=== PATIENT | male | born 1960 | race Caucasian/White ===

== ENCOUNTER 2022-12-03 19:08 | Emergency (ER) | payer MEDICARE, SELFPAY ==
[2022-12-03 19:12] VITALS: BP 108/78; PULSE 65; RESP 18; TEMP 36.5; O2SAT 99; BMI 35.4
--- NOTE | 2022-12-03 19:18 | ED.GENADULT ---
HPI - General Adult General Chief complaint: Dental/Oral Stated complaint: Dental pain Time Seen by Provider: 12/03/22 19:17 Source: patient Mode of arrival: ambulatory Limitations: no limitations History of Present Illness HPI narrative: 62 yold male presents to the ED for left lower molar pain and right upper molar pain. Patient states poor dental hygeine and decaying teeth. Patient denies any recent trauma or recent dental work. Related Data Previous Rx's Medication Instructions Recorded clindamycin HCl 300 mg capsule 300 mg PO TID 10 days #30 caps 12/03/22 oxycodone 5 mg capsule 5 mg PO Q8H PRN pain 3 days #9 caps 12/03/22 Allergies Allergy/AdvReac Type Severity Reaction Status Date / Time ketorolac [From Toradol] Allergy Rash Verified 12/03/22 19:11 Penicillins Allergy Hives Verified 12/03/22 19:11 Review of Systems Review of Systems: toothache Yes all other systems are reviewed and are negative [facility] Social History Social History Advance Directives: No Physical Exam ED Vital Signs: Vital Signs - 24 hr 12/03/22 19:12 Temperature 97.7 F Pulse Rate 65 Respiratory Rate 18 Blood Pressure 108/78 Pulse Oximetry 99 Oxygen Delivery Method Room Air BMI result Body Mass Index 35.4 Const General: cooperative, healthy appearing, comfortable and no acute distress Orientation/consciousness: oriented to person, oriented to place, oriented to time and patient oriented x3 HENMT Other: negative for any facial swelling, neck swelling, drooling, trismus Head: Yes normal to inspection, Yes No palpable skull fracture present and Yes normocephalic Teeth image: 1. cracked tooth with some pus collection. no gum swelling, fluctulance, or trismus. 2. decaying teeth. negative trismus or gum swelling. negative fluctulance Eyes General: appearance normal, both eyes and all related structures Neck Neck: Yes normal visual inspection, Yes full ROM, Yes no lymphadenopathy, Yes no meningeal signs, Yes trachea midline, Yes supple, No anterior neck swelling and No tender Chest Chest palpation & inspection: normal inspection of the chest and normal palpation of entire chest wall Resp Effort & Inspection: normal respiratory effort and able to speak in complete sentences Auscultation: clear to auscultation bilaterally Cardio Jugular venous distension: no JVD Heart sounds: S1 normal heart sound present and S2 normal heart sound present GI Inspection: Yes normal to inspection and No abdominal wall ecchymosis Palpation (GI): Soft to palpation, not firm, nontender, no guarding and not rigid General: No CVA tenderness and Yes no CVA tenderness Back/Spine/Pelvis Back: no CVA tenderness, No CVA tenderness and No back tenderness Skin General skin exam: no rashes or lesions noted and elasticity normal Neuro General: oriented to person, oriented to place, oriented to time, patient oriented x3, gait normal, tone normal, moves all extremities, Normal light touch and pain sensation, no meningeal signs and no focal motor deficits Extrem General: Yes normal to inspection and Yes full ROM Psych Appearance: grossly normal, well kempt and not disheveled Course Course Course Narrative: RME: 62 yolld male presents to the for left lower molar pain and right upper molar pain. LEft lower molar cracked and yellow collection Medical Decision Making Medical Decision Making MDM Narrative: 62 yold male presents to the ED for left lower molar cracked tooth and right upper molar decaying tooth. Negative for any neck swelling or facial swelling. negative for drooling or trismus. Will be discharged with antibiotics and pain meds. Negative for signs of peritonsillar abscess, jayme angina, retropharygneal abscess, or gum abscess Differential Diagnosis Differential Diagnoses: The differential diagnosis associated with the presentation includes (tootach, dental abscess, jayme angina, retropharyngeal abscess, gum abscess) External Record Review External record reviewed: Other (prior ED visit) Prescription Management I considered prescription management with: Pain Medication and Antibiotic Discharge Plan Discharge Clinical Impression: Toothache Patient Disposition: Home, Self-Care Instructions: Toothache (ED) Additional Instructions: Return to the ED immediately any facial swelling, neck swelling, drooling, shortness of breath, change in voice, inability to tolerate solid food/liquid, or any other concerning symptoms. Please follow-up with your dentist. Prescriptions: New clindamycin HCl 300 mg capsule 300 mg PO TID 10 Days Qty: 30 0RF oxycodone 5 mg capsule 5 mg PO Q8H PRN (Reason: pain) 3 Days Qty: 9 0RF Rx Instructions: Partial Fill upon patient request. Interventions: ED Discharge Assessment Last Done: 12/03/22 19:33 Discharge Date/Time: 12/03/22 19:33 Print Language: Sudanese
== END 2022-12-03 19:33 | disposition home or self-care (01) ==
PROVIDERS: Emergency Provider Emergency Medicine
DX: K02.9 Dental caries, unspecified (principal); K08.89 Other specified disorders of teeth and supporting structures
CPT/HCPCS: 99282; 99283

== ENCOUNTER 2022-12-06 13:32 | Emergency (ER) | payer MEDICARE, SELFPAY ==
[2022-12-06 13:55] VITALS: BP 153/84; PULSE 74; RESP 17; TEMP 36.7; O2SAT 99; BMI 33.1
--- NOTE | 2022-12-06 13:55 | ED_ITS ---
HPI - Dental/Oral General Chief complaint: Dental/Oral Stated complaint: pain in teeth Time Seen by Provider: 12/06/22 14:02 Source: patient and old records reviewed Mode of arrival: ambulatory Limitations: no limitations History of Present Illness HPI Narrative: 62 yo male presents to the ER for evaluation of worsening left lower dental pain. He has a cracked tooth with pus draining from the central portion of it. He was seen here 2 days ago and was discharged with clindamycin and oxycodone. He denies any fever, chills, trismus or facial swelling. He is here visiting from [place] and has an oral surgeon who he can see as soon as he gets back. MD Complaint: tooth pain Location: Tooth # (20) Onset (ago): day(s) Duration: constant Severity: severe Severity scale (1-10): 10 Relieving factors: prescription analgesics Context: history of dental caries, trauma (mechanism) and poor dental care Associated symptoms: gum swelling Treatment prior to arrival: topical analgesic and oral analgesic Related Data Previous Rx's Medication Instructions Recorded clindamycin HCl 300 mg capsule 300 mg PO TID 10 days #30 caps 12/03/22 oxycodone 5 mg capsule 5 mg PO Q8H PRN pain 3 days #9 caps 12/03/22 ondansetron 4 mg disintegrating 4 mg PO Q8H PRN nausea and 12/06/22 tablet vomiting 3 days #10 tabs oxycodone-acetaminophen 5 mg-325 1 tab PO Q6H PRN severe pain 12/06/22 mg tablet (Percocet) (scale score 7-10) #12 tabs Allergies Allergy/AdvReac Type Severity Reaction Status Date / Time ketorolac [From Toradol] Allergy Rash Verified 12/03/22 19:11 Penicillins Allergy Hives Verified 12/03/22 19:11 Review of Systems Review of Systems: Yes all other systems are reviewed and are negative PMF[facility] Social History Social History Advance Directives: No Advance Directives Information Provided: Yes Physical Exam Vital Signs: Vital Signs: Last Vital Signs Temp 98.0 F 12/06/22 13:55 Pulse 74 12/06/22 13:55 Resp 17 12/06/22 13:55 BP 153/84 H 12/06/22 13:55 Pulse Ox 99 12/06/22 13:55 O2 Del Method Room Air 12/06/22 13:55 BMI result Body Mass Index 33.1 Appearance: Alert. Oriented X3. No acute distress. HEENT: normal external inspection. no facial swelling. poor dentition. left lower molar cracked w dental exposed pulp and purulent material. +gingival tenderness without fluctuance. no trismus CVS: Normal heart rate and rhythm. Pulses normal. Respiratory: No respiratory distress. Skin: Skin warm and dry. Normal skin color. Normal skin turgor. No rashes. Extremities: normal inspection x4 Neuro: Oriented X 3. nonfocal Medical Decision Making Medical Decision Making MDM Narrative: 62 yo male presenting with ongoing left lower dental pain x1 week. on clinda already, PCN allergic. abscess on exam, draining without trismus. no facial swelling. he has an oral surgeon to see when he gets home to [place] he just ne eds more pain meds to get him through the drive home. stable for d/c home with pain control and oral surgery follow up Differential Diagnosis Differential Diagnoses: The differential diagnosis associated with the presentation includes dental abscess, toothache, dental trauma, no evidence of ludwigs angina Independent Historian Clinical information obtained from an independent historian. History obtained from or confirmed by: Spouse External Record Review External record reviewed: Outpatient record Tests considered The following testing was considered but not selected: considered CT facial bones Prescription Management I considered prescription management with: Pain Medication and Antibiotic Critical Care Time Critical Care Time Critical Care Time: No Discharge Plan Discharge Clinical Impression: Abscess, dental Patient Disposition: Home, Self-Care Instructions: Dental Abscess (ED) Additional Instructions: continue the previously prescribed antibiotics take the prescribed pain medication as needed for severe pain follow up with your oral surgeon as soon as possible Prescriptions: New oxycodone-acetaminophen [Percocet] 5-325 mg tablet 1 tab PO Q6H PRN (Reason: severe pain (scale score 7-10)) Qty: 12 0RF Rx Instructions: Partial Fill upon patient request. ondansetron 4 mg tablet,disintegrating 4 mg PO Q8H PRN (Reason: nausea and vomiting) 3 Days Qty: 10 0RF No Action clindamycin HCl 300 mg capsule 300 mg PO TID 10 Days Qty: 30 0RF oxycodone 5 mg capsule 5 mg PO Q8H PRN (Reason: pain) 3 Days Qty: 9 0RF Rx Instructions: Partial Fill upon patient request. Interventions: ED Discharge Assessment Last Done: 12/06/22 14:11 Discharge Date/Time: 12/06/22 14:12
== END 2022-12-06 14:12 | disposition home or self-care (01) ==
PROVIDERS: Emergency Provider Emergency Medicine Emergency Medical Services
DX: K04.7 Periapical abscess without sinus (principal); Z79.899 Other long term (current) drug therapy
CPT/HCPCS: 99282; 99283

== ENCOUNTER 2022-12-10 12:37 | Emergency (ER) | payer MEDICARE, SELFPAY ==
[2022-12-10 12:39] VITALS: BP 156/93; PULSE 69; RESP 20; TEMP 37.2; O2SAT 99; BMI 32.6
--- NOTE | 2022-12-10 12:43 | ED.GENADULT ---
HPI - General Adult General Chief complaint: General Medical Stated complaint: med refill? tooth pain Time Seen by Provider: 12/10/22 12:43 Source: patient Mode of arrival: ambulatory Limitations: no limitations History of Present Illness HPI narrative: Patient is a 62-year-old male presenting to the emergency department with complaint of dental pain to left lower jaw. Patient has been seen in this ED twice in the past week for similar complaint. He was prescribed a course of clindamycin and oxycodone at first visit, and Percocet and Zofran at second visit. He reports that the area is no longer draining pus, but he is continuing to have pain. States he is using Tylenol and ibuprofen intermittently. Reports that he is returning home to [place] tomorrow morning and has an appointment with his dentist in [place] on Sunday. Denies fevers. Denies any trismus, swelling to gums or difficulty swallowing. MD complaint: dental pain Onset (ago): day(s) Location: mouth Severity: severe Quality: aching Pain Consistency: constant Relieving factors: medication Exacerbating factors: eating Associated symptoms: denies other symptoms Treatments prior to arrival: NSAID and other Related Data Previous Rx's Medication Instructions Recorded clindamycin HCl 300 mg capsule 300 mg PO TID 10 days #30 caps 12/03/22 oxycodone 5 mg capsule 5 mg PO Q8H PRN pain 3 days #9 caps 12/03/22 ondansetron 4 mg disintegrating 4 mg PO Q8H PRN nausea and 12/06/22 tablet vomiting 3 days #10 tabs oxycodone-acetaminophen 5 mg-325 1 tab PO Q6H PRN severe pain 12/06/22 mg tablet (Percocet) (scale score 7-10) #12 tabs oxycodone 5 mg tablet 5 mg PO Q8H PRN pain #9 tabs 12/10/22 Allergies Allergy/AdvReac Type Severity Reaction Status Date / Time ketorolac [From Toradol] Allergy Rash Verified 12/10/22 12:43 Penicillins Allergy Hives Verified 12/10/22 12:43 Review of Systems Review of Systems: As per HPI. Yes all other systems are reviewed and are negative Constitutional: Constitutional: Reports as per HPI Physical Exam ED Vital Signs: Vital Signs - 24 hr 12/10/22 12:39 Temperature 98.9 F Pulse Rate 69 Respiratory Rate 20 Blood Pressure 156/93 H Pulse Oximetry 99 Oxygen Delivery Method Room Air BMI result Body Mass Index 32.6 Vital signs have been reviewed and appear to be correct. Blood pressure elevated. Heart rate normal. Respiratory rate normal. Temperature normal. Oxygen saturation normal. Const General: cooperative and no acute distress Orientation/consciousness: oriented to person, oriented to place, oriented to time and patient oriented x3 Limitations: no limitations HENMT Head: Yes normocephalic and Yes atraumatic Ears: external ears normal General nose exam: Normal external nose present Face and sinus: Yes face symmetric Mouth: oropharynx normal and moist mucous membranes Teeth and gingiva: poor dentition Teeth image: 1. Tooth cracked in half, no gingival erythema, edema, or drainage Throat: Yes posterior oropharynx normal, Yes uvula midline and No uvular edema Neck Neck: Yes no lymphadenopathy Resp Effort & Inspection: normal respiratory effort and able to speak in complete sentences Auscultation: clear to auscultation bilaterally Cardio Rate: regular rate Rhythm: regular rhythm Heart sounds: S1 normal heart sound present and S2 normal heart sound present Skin General skin exam: elasticity normal and turgor normal Neuro General: oriented to person, oriented to place, oriented to time, patient oriented x3 and moves all extremities Cognition (Neuro): normal cognition Extrem General: Yes full ROM Psych Mental Status: mental status grossly normal Medical Decision Making Medical Decision Making MDM Narrative: Patient is a 62-year-old male presenting to the emergency department with complaint of dental pain to left lower jaw. On exam patient is awake, A+Ox3, VS WNL, afebrile, normal neurological exam without focal deficits, physical exam findings as above. Given reported symptoms and physical exam findings, initial differential includes dental pain, dental abscess, fractured tooth. No evidence of Yo's angina. Has appointment with oral surgeon on Sunday in [place], is heading back to [place] tomorrow am and will be driving. Will prescribe additional oxycodone but advised patient to begin alternating Tylenol and ibuprofen every 3 hours and reserve the oxycodone only for severe pain. Return precautions discussed at bedside. Patient verbalized understanding of and agreement with plan. Differential Diagnosis Differential Diagnoses: The differential diagnosis associated with the presentation includes As per MDM. External Record Review External record reviewed: Inpatient record, Office record and Outpatient record Prescription Management I considered prescription management with: Pain Medication Discharge Plan Discharge Clinical Impression: Pain, dental Patient Disposition: Home, Self-Care Instructions: Toothache (ED) Additional Instructions: You were evaluated in the emergency department today for dental pain. You do not require additional antibiotics at this time. You should alternate 600mg ibuprofen and 650mg ibuprofen every 3 hours. For example, at noon take Tylenol, at 3:00pm take ibuprofen, at 6:00pm take Tylenol, etc. You are being prescribed pain medication which you should take only for severe pain. It is important that you follow up with your dentist in [place] on Sunday. Prescriptions: New oxycodone 5 mg tablet 5 mg PO Q8H PRN (Reason: pain) Qty: 9 0RF Rx Instructions: Partial Fill upon patient request. No Action clindamycin HCl 300 mg capsule 300 mg PO TID 10 Days Qty: 30 0RF oxycodone 5 mg capsule 5 mg PO Q8H PRN (Reason: pain) 3 Days Qty: 9 0RF Rx Instructions: Partial Fill upon patient request. oxycodone-acetaminophen [Percocet] 5-325 mg tablet 1 tab PO Q6H PRN (Reason: severe pain (scale score 7-10)) Qty: 12 0RF Rx Instructions: Partial Fill upon patient request. ondansetron 4 mg tablet,disintegrating 4 mg PO Q8H PRN (Reason: nausea and vomiting) 3 Days Qty: 10 0RF
== END 2022-12-10 13:00 | disposition home or self-care (01) ==
LOC: HO.ED 12:58
PROVIDERS: Emergency Provider Emergency Medicine
DX: K08.89 Other specified disorders of teeth and supporting structures (principal); Z79.899 Other long term (current) drug therapy; Z76.0 Encounter for issue of repeat prescription
CPT/HCPCS: 99282; 99283

== ENCOUNTER 2023-01-07 15:12 | Emergency (ER) | payer MEDICARE, SELFPAY ==
[2023-01-07 16:08] VITALS: BP 131/88; PULSE 70; RESP 18; TEMP 36.8; O2SAT 98; BMI 33.2
--- NOTE | 2023-01-07 16:23 | ED.GENADULT ---
HPI - General Adult General Chief complaint: Dental/Oral Stated complaint: Dental issues Time Seen by Provider: 01/07/23 16:12 Source: patient Mode of arrival: ambulatory Limitations: no limitations History of Present Illness HPI narrative: 62 yold male with HTN, chronic poor dentition and need for tooth extraction presents to the ED for upper molar pain after it was cracked. Patient cracked tooth while eating. Patient just finised course of anitbiotics for other painful molars that were also cracked. patietn denies any neck swelling, facial swelling, Patient denies any recent dental work Related Data Previous Rx's Medication Instructions Recorded clindamycin HCl 300 mg capsule 300 mg PO TID 10 days #30 caps 12/03/22 ondansetron 4 mg disintegrating 4 mg PO Q8H PRN nausea and 12/06/22 tablet vomiting 3 days #10 tabs oxycodone-acetaminophen 5 mg-325 1 tab PO Q6H PRN severe pain 12/06/22 mg tablet (Percocet) (scale score 7-10) #12 tabs clindamycin HCl 300 mg capsule 300 mg PO TID 7 days #21 caps 01/07/23 oxycodone 5 mg capsule 5 mg PO TID PRN pain 3 days #9 caps 01/07/23 oxycodone 5 mg tablet 5 mg PO Q8H PRN severe pain (scale 01/07/23 score 7-10) #9 tabs Allergies Allergy/AdvReac Type Severity Reaction Status Date / Time ketorolac [From Toradol] Allergy Rash Verified 01/07/23 16:08 Penicillins Allergy Hives Verified 01/07/23 16:08 Review of Systems Review of Systems: Dental pain. Upper molar pain Yes all other systems are reviewed and are negative [facility] Social History Advance Directives: No Advance Directives Information Provided: No Physical Exam ED Vital Signs: Vital Signs - 24 hr 01/07/23 16:08 Temperature 98.2 F Pulse Rate 70 Respiratory Rate 18 Blood Pressure 131/88 Pulse Oximetry 98 Oxygen Delivery Method Room Air BMI result Body Mass Index 33.2 Const General: cooperative, healthy appearing, comfortable, no acute distress, well developed, alert and awake Orientation/consciousness: oriented to person, oriented to place, oriented to time and patient oriented x3 HENMT Other: Patient has poor dentition in all molars. negative for facial swelilng, neck swelling, or erythema. Head: Yes normal to inspection, Yes No palpable skull fracture present, Yes normocephalic and Yes atraumatic Teeth image: 1. tooth is cracked. Positive for yellow collection in crack. Negative for trismus, gum swelling, of flocculent mass. Oral exam negative for signs of peritonsillar abscess, gum abscess, or trismus. Throat: Yes posterior oropharynx normal, Yes tonsils normal and Yes uvula midline Eyes General: appearance normal, both eyes and all related structures Neck Neck: Yes normal visual inspection, Yes full ROM, Yes no lymphadenopathy, Yes no meningeal signs, Yes trachea midline, Yes supple, No anterior neck swelling and No tender Chest Chest palpation & inspection: normal inspection of the chest and normal palpation of entire chest wall Resp Effort & Inspection: normal respiratory effort and able to speak in complete sentences Auscultation: clear to auscultation bilaterally Cardio Jugular venous distension: no JVD Heart sounds: S1 normal heart sound present and S2 normal heart sound present GI Inspection: Yes normal to inspection and No abdominal wall ecchymosis Palpation (GI): Soft to palpation, not firm, nontender, no guarding and not rigid General: No CVA tenderness and Yes no CVA tenderness Back/Spine/Pelvis Back: no CVA tenderness, No CVA tenderness and No back tenderness Skin General skin exam: no rashes or lesions noted, elasticity normal and turgor normal Neuro General: oriented to person, oriented to place, oriented to time, patient oriented x3, gait normal, tone normal, moves all extremities, Normal light touch and pain sensation, no meningeal signs, no focal motor deficits, CN's II-XI intact bilaterally and normal sensation to monofilament Extrem General: Yes normal to inspection, Yes full ROM and Yes capillary refill normal Psych Appearance: grossly normal, well kempt and not disheveled Course Course Course Narrative: RME: 62 yold male presents to the ED for frontal denta pain. poor dentition and decay. scheled for tooth extraction in january Reevaluation(s) Additional Reevaluation(s): Patient called and said that he would like his prescription changed from [facility] to [facility] on states she because it would not be available for a couple of days at [facility]. I canceled his prescription walk-in and sent new prescriptions for the exact same medications and dosing to [facility] Medical Decision Making Medical Decision Making MDM Narrative: 62-year-old male past medical history hypertension and poor dentition presents to the ED for upper molar pain due to it being crack since 2 days ago. Patient denies any recent facial swelling or trauma. Patient states no neck swelling or drooling. Patient admits to poor dentition with teeth decay as to have all his teeth extracted. Patient denies any recent dental work. patient upper molar is cracked and will need antibiotics due to yellow collection in crack. Patient will be discharged with new clindamycin again and informed he should follow up with Dentists. negative for signs of trismus, retropharngeal abscess, peritonsillar abscess, or jayme angina Differential Diagnosis Differential Diagnoses: The differential diagnosis associated with the presentation includes (dental pain, tooth infection, tooth decay, cracked tooth) External Record Review External record reviewed: Other (prior visists) Prescription Management I considered prescription management with: Pain Medication and Antibiotic Discharge Plan Discharge Clinical Impression: Toothache Patient Disposition: Home, Self-Care Instructions: Toothache (ED) Additional Instructions: Please follow up with Dentists and oral surgeon for earlier evaluation of tooth extraction. Return to the ED immediatley of any facial pain, neck swelling, drooling, fever, chills, change in voice, chest pain, shortness of breath or any other concerning symptoms. Prescriptions: New clindamycin HCl 300 mg capsule 300 mg PO TID 7 Days Qty: 21 0RF oxycodone 5 mg capsule 5 mg PO TID PRN (Reason: pain) 3 Days Qty: 9 0RF Rx Instructions: Partial Fill upon patient request. oxycodone 5 mg tablet 5 mg PO Q8H PRN (Reason: severe pain (scale score 7-10)) Qty: 9 0RF Rx Instructions: Partial Fill upon patient request. Discontinued oxycodone 5 mg capsule 5 mg PO Q8H PRN (Reason: pain) 3 Days Qty: 9 0RF Rx Instructions: Partial Fill upon patient request. oxycodone 5 mg tablet 5 mg PO Q8H PRN (Reason: pain) Qty: 9 0RF Rx Instructions: Partial Fill upon patient request. No Action clindamycin HCl 300 mg capsule 300 mg PO TID 10 Days Qty: 30 0RF oxycodone-acetaminophen [Percocet] 5-325 mg tablet 1 tab PO Q6H PRN (Reason: severe pain (scale score 7-10)) Qty: 12 0RF Rx Instructions: Partial Fill upon patient request. ondansetron 4 mg tablet,disintegrating 4 mg PO Q8H PRN (Reason: nausea and vomiting) 3 Days Qty: 10 0RF Interventions: ED Discharge Assessment Last Done: 01/07/23 16:58 Discharge Date/Time: 01/07/23 16:58 Print Language: Citizen [place]
== END 2023-01-07 16:58 | disposition home or self-care (01) ==
PROVIDERS: Emergency Provider Student in an Organized Health Care Education/Training Program
DX: K03.81 Cracked tooth (principal); Z79.899 Other long term (current) drug therapy
CPT/HCPCS: 99282

== ENCOUNTER 2023-02-05 18:15 | Emergency (ER) | payer MEDICARE, SELFPAY ==
[2023-02-05 19:28] VITALS: BP 125/87; PULSE 79; RESP 20; TEMP 36.4; O2SAT 96; BMI 35.4
--- NOTE | 2023-02-05 19:29 | ED.GENADULT ---
HPI - General Adult General Chief complaint: Dental/Oral Stated complaint: tooth pain Source: patient and RN notes reviewed Mode of arrival: ambulatory Limitations: no limitations History of Present Illness HPI narrative: This is a 62-year-old male presenting to the emergency department with complaints of dental pain. Patient states that he is urgently from [place]. He states that he has a scheduled dental removal for February 23. States that his left upper molar has been causing him significant pain. He has been seen multiple times in the emergency room due to dental pain. MD complaint: dental pain Onset (ago): day(s) Relieving factors: none Exacerbating factors: none Associated symptoms: denies other symptoms Treatments prior to arrival: none Related Data Previous Rx's Medication Instructions Recorded clindamycin HCl 300 mg capsule 300 mg PO TID 10 days #30 caps 12/03/22 ondansetron 4 mg disintegrating 4 mg PO Q8H PRN nausea and 12/06/22 tablet vomiting 3 days #10 tabs oxycodone-acetaminophen 5 mg-325 1 tab PO Q6H PRN severe pain 12/06/22 mg tablet (Percocet) (scale score 7-10) #12 tabs clindamycin HCl 300 mg capsule 300 mg PO TID 7 days #21 caps 01/07/23 oxycodone 5 mg capsule 5 mg PO TID PRN pain 3 days #9 caps 01/07/23 oxycodone 5 mg tablet 5 mg PO Q8H PRN severe pain (scale 01/07/23 score 7-10) #9 tabs acetaminophen 500 mg tablet 500 mg PO Q6H PRN pain #30 tabs 02/05/23 (Tylenol Extra Strength) clindamycin HCl 300 mg capsule 300 mg PO TID 7 days #21 caps 02/05/23 oxycodone-acetaminophen 5 mg-325 1 tab PO Q6H PRN pain #7 tabs 02/05/23 mg tablet (Percocet) clindamycin HCl 300 mg capsule 300 mg PO TID 10 days #30 caps 02/07/23 oxycodone 5 mg tablet 5 mg PO Q8H PRN pain 3 days #9 tabs 02/07/23 Allergies Allergy/AdvReac Type Severity Reaction Status Date / Time ketorolac [From Toradol] Allergy Rash Verified 02/07/23 13:32 Penicillins Allergy Hives Verified 02/07/23 13:32 Review of Systems Review of Systems: Yes all other systems are reviewed and are negative Constitutional: Constitutional: Reports as per [facility] Past Medical History Attestation statement: The following information was validated with the patient. Social History Social History Advance Directives: No Advance Directives Information Provided: No Physical Exam ED Vital Signs: Vital Signs - 24 hr 02/05/23 19:28 Temperature 97.5 F Pulse Rate 79 Respiratory Rate 20 Blood Pressure 125/87 Pulse Oximetry 96 Oxygen Delivery Method Room Air BMI result Body Mass Index 35.4 Const General: cooperative, comfortable and no acute distress Orientation/consciousness: patient oriented x3 Limitations: no limitations HENMT Other: patient has extremely poor dentition throughout. Tooth 9. Is cracked and exquisitely tender on palpation. All teeth are decayed. No gingival erythema or fluctuance, no signs of dental abscess. Head: Yes normal to inspection, Yes normocephalic and Yes atraumatic Ears: hearing grossly normal bilaterally General nose exam: Normal external nose present Face and sinus: Yes normal facial exam Mouth: Normal oral and palatal mucosa present, oropharynx normal and moist mucous membranes Throat: Yes posterior oropharynx normal Eyes General: appearance normal, both eyes and all related structures Eyelids: Yes eyelids normal Conjunctivae: conjunctivae normal Sclerae: sclerae normal Pupils: Equal, round and reactive pupils present EOM: EOMs intact bilaterally Neck Neck: Yes normal visual inspection, Yes full ROM and Yes no lymphadenopathy Lymphatic: no lymphadenopathy noted Chest Chest palpation & inspection: normal inspection of the chest Resp Effort & Inspection: normal respiratory effort and able to speak in complete sentences Auscultation: clear to auscultation bilaterally, no crackles, no rales, no rhonchi and no wheezes Cardio Rate: regular rate Rhythm: regular rhythm Heart sounds: S1 normal heart sound present and S2 normal heart sound present GI Inspection: Yes normal to inspection Skin General skin exam: no rashes or lesions noted Trauma: no lacerations or abrasions Wounds: no wounds Neuro General: patient oriented x3 and moves all extremities Cranial nerves: Yes Equal, round and reactive pupils present Extrem General: Yes normal to inspection Right upper extremity: normal to inspection Left upper extremity: normal to inspection Right lower extremity: normal to inspection Left lower extremity: normal to inspection Course Course Course Narrative: 02/06/23 15:16 Received call from pharmacist at [facility] expressing concern over prescription for Percocet sent yesterday. States that patient has had multiple opiate prescriptions filled by multiple different providers within the last 90 days, some paid for with [employer], patient claiming he lives in [place] but has filled numerous prescriptions in [place]. Agree with pharmacist to cancel prescription at this time. Medical Decision Making Medical Decision Making [facility] Narrative: This is a 62-year-old male presenting to the emergency department for evaluation of dental pain. Patient has been seen here multiple times for similar symptoms. He states that he has an appointment scheduled for February 23 in [place] to have his teeth removed.He has no obvious dental abscess that requires I&D. no pharyngeal edema or neck swelling. pt given rx for abx and narcotic pain medication. Advised that he needs to f.u with dentist and that we cannot continue to refill narcotic pain medication. He understands. Stable for d/c. Differential Diagnosis Differential Diagnoses: The differential diagnosis associated with the presentation includes dental decay, dental abscess, dental fracture Lab Data [facility] Lab Attestation statement: I reviewed the patient's lab results. Radiology Impression Discussion of test interpretation with radiology: I have reviewed the radiologist's reading. External Record Review External record reviewed: Inpatient record, Office record, Outpatient record, Prior outpatient labs, Prior outpatient radiology, Primary care record and Outside ED record Discharge Plan Discharge Clinical Impression: Pain, dental Patient Disposition: Home, Self-Care Instructions: Toothache (ED) Additional Instructions: you were seen in the emergency department due to dental pain. You need to follow-up with the dental. Take prescribed Percocet only as needed for severe pain only. Please be aware that we cannot refill this medication chronically through the emergency room. I am also prescribing you Tylenol, take as directed as needed for pain. Do not mix Percocet and Tylenol together. If any new or worsening symptoms occur including but not limited to fevers, worsening pain, please return for re-evaluation. Prescriptions: New clindamycin HCl 300 mg capsule 300 mg PO TID 7 Days Qty: 21 0RF oxycodone-acetaminophen [Percocet] 5-325 mg tablet 1 tab PO Q6H PRN (Reason: pain) Qty: 7 0RF Rx Instructions: Partial Fill upon patient request. acetaminophen [Tylenol Extra Strength] 500 mg tablet 500 mg PO Q6H PRN (Reason: pain) Qty: 30 0RF No Action clindamycin HCl 300 mg capsule 300 mg PO TID 10 Days Qty: 30 0RF oxycodone 5 mg tablet 5 mg PO Q8H PRN (Reason: pain) 3 Days Qty: 9 0RF Rx Instructions: Partial Fill upon patient request. clindamycin HCl 300 mg capsule 300 mg PO TID 10 Days Qty: 30 0RF oxycodone-acetaminophen [Percocet] 5-325 mg tablet 1 tab PO Q6H PRN (Reason: severe pain (scale score 7-10)) Qty: 12 0RF Rx Instructions: Partial Fill upon patient request. ondansetron 4 mg tablet,disintegrating 4 mg PO Q8H PRN (Reason: nausea and vomiting) 3 Days Qty: 10 0RF clindamycin HCl 300 mg capsule 300 mg PO TID 7 Days Qty: 21 0RF oxycodone 5 mg capsule 5 mg PO TID PRN (Reason: pain) 3 Days Qty: 9 0RF Rx Instructions: Partial Fill upon patient request. oxycodone 5 mg tablet 5 mg PO Q8H PRN (Reason: severe pain (scale score 7-10)) Qty: 9 0RF Rx Instructions: Partial Fill upon patient request. Interventions: ED Discharge Assessment Last Done: 02/05/23 19:43 Discharge Date/Time: 02/05/23 19:44
--- NOTE | 2023-02-05 19:41 | PC.NURSE ---
pt given discharge instruction with pt. pt verbalized understanding.
== END 2023-02-05 19:44 | disposition home or self-care (01) ==
PROVIDERS: Emergency Provider Emergency Medicine
DX: K08.89 Other specified disorders of teeth and supporting structures (principal)
CPT/HCPCS: 99282; 99283

== ENCOUNTER 2023-02-07 12:42 | Emergency (ER) | payer MEDICARE, SELFPAY ==
[2023-02-07 13:32] VITALS: BP 132/90; PULSE 70; RESP 19; TEMP 36.6; O2SAT 99; BMI 35.4
--- NOTE | 2023-02-07 13:39 | ED_ITS ---
HPI - General Adult General Chief complaint: Dental/Oral Stated complaint: Dental Issues Time Seen by Provider: 02/07/23 13:38 Source: patient Mode of arrival: ambulatory Limitations: no limitations History of Present Illness HPI narrative: 62 yold male presents to the ED for pain medication and frontal dental pain. patient never picked up the opoid pain prescription, so pharmacy cancelled the pain pescription. patient has appointment on for teeth extraction Related Data Previous Rx's Medication Instructions Recorded clindamycin HCl 300 mg capsule 300 mg PO TID 10 days #30 caps 12/03/22 ondansetron 4 mg disintegrating 4 mg PO Q8H PRN nausea and 12/06/22 tablet vomiting 3 days #10 tabs oxycodone-acetaminophen 5 mg-325 1 tab PO Q6H PRN severe pain 12/06/22 mg tablet (Percocet) (scale score 7-10) #12 tabs clindamycin HCl 300 mg capsule 300 mg PO TID 7 days #21 caps 01/07/23 oxycodone 5 mg capsule 5 mg PO TID PRN pain 3 days #9 caps 01/07/23 oxycodone 5 mg tablet 5 mg PO Q8H PRN severe pain (scale 01/07/23 score 7-10) #9 tabs acetaminophen 500 mg tablet 500 mg PO Q6H PRN pain #30 tabs 02/05/23 (Tylenol Extra Strength) clindamycin HCl 300 mg capsule 300 mg PO TID 7 days #21 caps 02/05/23 oxycodone-acetaminophen 5 mg-325 1 tab PO Q6H PRN pain #7 tabs 02/05/23 mg tablet (Percocet) clindamycin HCl 300 mg capsule 300 mg PO TID 10 days #30 caps 02/07/23 oxycodone 5 mg tablet 5 mg PO Q8H PRN pain 3 days #9 tabs 02/07/23 Allergies Allergy/AdvReac Type Severity Reaction Status Date / Time ketorolac [From Toradol] Allergy Rash Verified 02/07/23 13:32 Penicillins Allergy Hives Verified 02/07/23 13:32 Review of Systems 2 Review of Systems: dental pain. need pain meds. Yes all other systems are reviewed and are negative PMFSH Social History Social History Advance Directives: No Advance Directives Information Provided: No Physical Exam ED Vital Signs: Vital Signs - 24 hr 02/07/23 13:32 Temperature 98 F Pulse Rate 70 Respiratory Rate 19 Blood Pressure 132/90 H Pulse Oximetry 99 Oxygen Delivery Method Room Air BMI result Body Mass Index 35.4 Const Other: negative for facial swelling, neck swelling, drooling or change in voice General: cooperative, healthy appearing, comfortable, no acute distress, well developed, alert and awake Orientation/consciousness: oriented to person, oriented to place, oriented to time and patient oriented x3 HENMT Head: Yes normal to inspection, Yes No palpable skull fracture present, Yes normocephalic and Yes atraumatic Ears: hearing grossly normal bilaterally, external ears normal, TM's normal bilaterally, TM normal on the right, TM normal on the left and EAC's normal Teeth image: 2 1. dental decay. cracked. no trismus Throat: Yes posterior oropharynx normal, Yes tonsils normal and Yes uvula midline Eyes General: appearance normal, both eyes and all related structures Neck Neck: Yes normal visual inspection, Yes full ROM, Yes no lymphadenopathy, Yes no meningeal signs, Yes trachea midline, Yes supple, No anterior neck swelling and No tender Chest Chest palpation & inspection: normal inspection of the chest and normal palpation of entire chest wall Resp Effort & Inspection: normal respiratory effort and able to speak in complete sentences Cardio Jugular venous distension: no JVD Heart sounds: S1 normal heart sound present and S2 normal heart sound present GI Inspection: Yes normal to inspection and No abdominal wall ecchymosis Palpation (GI): Soft to palpation, not firm, nontender, no guarding and not rigid General: Yes no CVA tenderness Back/Spine/Pelvis Back: no CVA tenderness and No back tenderness Skin General skin exam: no rashes or lesions noted, elasticity normal and turgor normal Neuro General: oriented to person, oriented to place, oriented to time, patient oriented x3, gait normal, tone normal, moves all extremities, Normal light touch and pain sensation, no meningeal signs and no focal motor deficits Extrem General: Yes normal to inspection, Yes full ROM and Yes capillary refill normal Psych Appearance: grossly normal, well kempt and not disheveled Course Course Course Narrative: RME: 62 yold male with pmh of poor dentition and dental decay. fron tooth pain. 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 patient is not in distress. negative for facial swelling or neck swelling. negative for trismus. Not suspecting jayme angina, retropharyngeal abscess, or peritonsillar abscess. DIscharge with pain meds and antibiotics. patient informed to keep appointment with dentists and dental surgeon. External Record Review External record reviewed: Other (prior) Prescription Management I considered prescription management with: Pain Medication and Antibiotic Social Determinants Patient?s care significantly limited by Social Determinants of Health including: Alcoholism and drug addiction in family Discharge Plan Discharge Clinical Impression: Toothache Patient Disposition: Home, Self-Care Instructions: Toothache (ED) Additional Instructions: Please keep your appiontment with dentists and dental surgeon for teeth extraction. Return to the ED for any facial swelling, neck swelling, drooling, chest pain, shortness of breath, dental pain, change in voice, or any other concernign symptosm. FOllow up with PCP. Prescriptions: New clindamycin HCl 300 mg capsule 300 mg PO TID 10 Days Qty: 30 0RF oxycodone 5 mg tablet 5 mg PO Q8H PRN (Reason: pain) 3 Days Qty: 9 0RF Rx Instructions: Partial Fill upon patient request. No Action clindamycin HCl 300 mg capsule 300 mg PO TID 10 Days Qty: 30 0RF oxycodone-acetaminophen [Percocet] 5-325 mg tablet 1 tab PO Q6H PRN (Reason: severe pain (scale score 7-10)) Qty: 12 0RF Rx Instructions: Partial Fill upon patient request. ondansetron 4 mg tablet,disintegrating 4 mg PO Q8H PRN (Reason: nausea and vomiting) 3 Days Qty: 10 0RF clindamycin HCl 300 mg capsule 300 mg PO TID 7 Days Qty: 21 0RF oxycodone 5 mg capsule 5 mg PO TID PRN (Reason: pain) 3 Days Qty: 9 0RF Rx Instructions: Partial Fill upon patient request. oxycodone 5 mg tablet 5 mg PO Q8H PRN (Reason: severe pain (scale score 7-10)) Qty: 9 0RF Rx Instructions: Partial Fill upon patient request. clindamycin HCl 300 mg capsule 300 mg PO TID 7 Days Qty: 21 0RF oxycodone-acetaminophen [Percocet] 5-325 mg tablet 1 tab PO Q6H PRN (Reason: pain) Qty: 7 0RF Rx Instructions: Partial Fill upon patient request. acetaminophen [Tylenol Extra Strength] 500 mg tablet 500 mg PO Q6H PRN (Reason: pain) Qty: 30 0RF Interventions: ED Discharge Assessment Last Done: 02/07/23 13:59 Discharge Date/Time: 02/07/23 14:00 Print Language: [place]
== END 2023-02-07 14:00 | disposition home or self-care (01) ==
PROVIDERS: Emergency Provider Emergency Medicine Emergency Medical Services
DX: K08.89 Other specified disorders of teeth and supporting structures (principal); Z79.899 Other long term (current) drug therapy
CPT/HCPCS: 99282; 99283

== ENCOUNTER 2023-08-10 11:43 | Emergency (ER) | payer MEDICARE, SELFPAY ==
[2023-08-10 12:01] VITALS: BP 140/83; PULSE 63; RESP 18; TEMP 36.6; O2SAT 98; BMI 33.8
--- NOTE | 2023-08-10 12:03 | ED.GENADULT ---
HPI - General Adult General Chief complaint: Dental/Oral Stated complaint: tooth pain Time Seen by Provider: 08/10/23 13:21 Source: patient Mode of arrival: ambulatory Limitations: no limitations History of Present Illness ED Provider: kalyan FAITH narrative: Patient is a 63-year-old male presenting to the emergency department with complaint of left lower jaw pain. States last night he fractured a molar to his left lower jaw. He has the tooth fragment in a pill bottle with him. Denies any discharge or drainage from the area. Denies any difficulty swallowing. Denies fevers. States that he has an appointment with his dentist for multiple extractions on September 05 and . States he has not contacted his dentist to see if an earlier appointment is available because his current appointments were scheduled months ago. complaint: Dental pain Onset (ago): hour(s) Location: mouth Radiation: non-radiation Severity: severe Quality: aching Pain Consistency: constant Relieving factors: none Exacerbating factors: eating Associated symptoms: denies other symptoms Treatments prior to arrival: other Related Data Previous Rx's ?Medication ?Instructions ?Recorded clindamycin HCl 300 mg capsule 300 mg PO TID 10 days #30 caps 12/03/22 ondansetron 4 mg disintegrating 4 mg PO Q8H PRN nausea and 12/06/22 tablet vomiting 3 days #10 tabs oxycodone-acetaminophen 5 mg-325 1 tab PO Q6H PRN severe pain 12/06/22 mg tablet (Percocet) (scale score 7-10) #12 tabs clindamycin HCl 300 mg capsule 300 mg PO TID 7 days #21 caps 01/07/23 oxycodone 5 mg capsule 5 mg PO TID PRN pain 3 days #9 caps 01/07/23 oxycodone 5 mg tablet 5 mg PO Q8H PRN severe pain (scale 01/07/23 score 7-10) #9 tabs acetaminophen 500 mg tablet 500 mg PO Q6H PRN pain #30 tabs 02/05/23 (Tylenol Extra Strength) clindamycin HCl 300 mg capsule 300 mg PO TID 7 days #21 caps 02/05/23 oxycodone-acetaminophen 5 mg-325 1 tab PO Q6H PRN pain #7 tabs 02/05/23 mg tablet (Percocet) clindamycin HCl 300 mg capsule 300 mg PO TID 10 days #30 caps 02/07/23 oxycodone 5 mg tablet 5 mg PO Q8H PRN pain 3 days #9 tabs 02/07/23 Allergies Allergy/AdvReac Type Severity Reaction Status Date / Time ketorolac [From Toradol] Allergy Rash Verified 08/10/23 12:01 Penicillins Allergy Hives Verified 08/10/23 12:01 Review of Systems Review of Systems: As per HPI. Yes all other systems are reviewed and are negative Constitutional: Constitutional: Reports as per HPI [facility] Social History Social History Advance Directives: No Advance Directives Information Provided: Yes Do you have a plan to hurt others: No Plan Physical Exam ED Vital Signs: Vital Signs - 24 hr 08/10/23 12:01 Temperature 97.9 F Pulse Rate 63 Respiratory Rate 18 Blood Pressure 140/83 H Pulse Oximetry 98 Oxygen Delivery Method Room Air BMI result Body Mass Index 33.8 Vital signs have been reviewed and appear to be correct. Blood pressure normal. Heart rate normal. Respiratory rate normal. Temperature normal. Oxygen saturation normal. Const General: cooperative, healthy appearing and no acute distress Orientation/consciousness: oriented to person, oriented to place, oriented to time and patient oriented x3 Limitations: no limitations HENMT Head: Yes normocephalic and Yes atraumatic Ears: external ears normal General nose exam: Normal external nose present Face and sinus: Yes face symmetric Mouth: Normal oral and palatal mucosa present, lip normal, tongue normal, oropharynx normal, moist mucous membranes and no drooling Teeth and gingiva: poor dentition Teeth image: 1. small portion of fractured tooth without surrounding erythema or gingival edema, no fluctuance, no drainage Throat: Yes uvula midline Eyes Pupils: Equal, round and reactive pupils present Neck Neck: Yes normal visual inspection, Yes no lymphadenopathy and Yes supple Resp Effort & Inspection: normal respiratory effort and able to speak in complete sentences Auscultation: clear to auscultation bilaterally Cardio Rate: regular rate Rhythm: regular rhythm Heart sounds: S1 normal heart sound present and S2 normal heart sound present Skin General skin exam: elasticity normal and turgor normal Neuro General: oriented to person, oriented to place, oriented to time, patient oriented x3, moves all extremities, no focal motor deficits and CN's II-XI intact bilaterally Cranial nerves: Yes Equal, round and reactive pupils present Cognition (Neuro): normal cognition Extrem General: Yes full ROM, Yes no pedal edema and Yes no calf tenderness Psych Mental Status: mental status grossly normal Affect: normal affect Thought process: Normal thought process present Course Course Course Narrative: RME performed by Jesika Jackson PA-C. Patient is a 63 year old assigned male at presenting to the emergency department with left lower dental pain. Patient states that he is scheduled to get into dental surgery next month but the tooth continues to break and cause him significant pain. Detailed physical exam and review of systems are deferred to the plastic top assembler. Patient placed back in the waiting room pending room availability. Medical Decision Making Medical Decision Making MDM Narrative: Patient is a 63-year-old male presenting to the emergency department with complaint of left lower jaw pain. On exam patient is awake, A+Ox3, VS WNL, afebrile, normal neurological exam without focal deficits, physical exam findings as above. Given reported symptoms and physical exam findings, initial differential includes fractured tooth, dental pain, dental abscess. Portion of tooth which patient brought in pill bottle severely decayed. This is patient's 7th visit for dental pain/concerns since November of 2022. Review of [employer] [employer] shows he has been prescribed 16 narcotics in the past year, with 5 different precribers filled at 5 different pharmacies in the past 6 months. He also filled a prescription for 90 tabs of 10mg oxycodone on 07/24/23. At this time do not feel comfortable prescribing additional narcotic pain medication. Do not feel antibiotics are indicated at this time and patient also states that he has a prescription for clindamycin at home. Advised patient to contact his dentist to see if an earlier appointment is available, use Tylenol and ibuprofen, gargle with warm salt water. Return precautions discussed. Patient verbalized understanding of plan. Differential Diagnosis Differential Diagnoses: The differential diagnosis associated with the presentation includes External Record Review External record reviewed: Inpatient record, Office record and Outpatient record Prescription Management I considered prescription management with: Pain Medication (see MDM) Discharge Plan Discharge Clinical Impression: Fracture of tooth Patient Disposition: Home, Self-Care Instructions: Toothache (ED) Additional Instructions: You were evaluated in the emergency department today for dental pain and tooth injury. Your evaluation did not show evidence of infection. Please follow up with your dentist as soon as possible. Return to the emergency department if you develop gum swelling, thick yellow drainage, fever, difficulty swallowing or any other concerning symptoms. Prescriptions: No Action clindamycin HCl 300 mg capsule 300 mg PO TID 10 Days Qty: 30 0RF oxycodone 5 mg tablet 5 mg PO Q8H PRN (Reason: pain) 3 Days Qty: 9 0RF Rx Instructions: Partial Fill upon patient request. clindamycin HCl 300 mg capsule 300 mg PO TID 10 Days Qty: 30 0RF oxycodone-acetaminophen [Percocet] 5-325 mg tablet 1 tab PO Q6H PRN (Reason: severe pain (scale score 7-10)) Qty: 12 0RF Rx Instructions: Partial Fill upon patient request. ondansetron 4 mg tablet,disintegrating 4 mg PO Q8H PRN (Reason: nausea and vomiting) 3 Days Qty: 10 0RF clindamycin HCl 300 mg capsule 300 mg PO TID 7 Days Qty: 21 0RF oxycodone 5 mg capsule 5 mg PO TID PRN (Reason: pain) 3 Days Qty: 9 0RF Rx Instructions: Partial Fill upon patient request. oxycodone 5 mg tablet 5 mg PO Q8H PRN (Reason: severe pain (scale score 7-10)) Qty: 9 0RF Rx Instructions: Partial Fill upon patient request. clindamycin HCl 300 mg capsule 300 mg PO TID 7 Days Qty: 21 0RF oxycodone-acetaminophen [Percocet] 5-325 mg tablet 1 tab PO Q6H PRN (Reason: pain) Qty: 7 0RF Rx Instructions: Partial Fill upon patient request. acetaminophen [Tylenol Extra Strength] 500 mg tablet 500 mg PO Q6H PRN (Reason: pain) Qty: 30 0RF Print Language: Zimbabwean
[2023-08-10 14:07] VITALS: BP 140/83; PULSE 63; RESP 18; TEMP 36.6; O2SAT 98
== END 2023-08-10 14:09 | disposition home or self-care (01) ==
PROVIDERS: Emergency Provider Emergency Medicine
DX: S02.5XXA Fracture of tooth (traumatic), initial encounter for closed fracture (principal); X58.XXXA Exposure to other specified factors, initial encounter; Y93.9 Activity, unspecified; Y92.9 Unspecified place or not applicable; Y99.8 Other external cause status
CPT/HCPCS: 99282

== ENCOUNTER 2023-11-06 16:14 | Emergency (ER) | payer MEDICARE, SELFPAY ==
--- NOTE | ~2023-11-06 | XR_ITS ---
EXAMINATION: CHEST 2 VIEWS CLINICAL INFORMATION: cough. COMPARISON: No recent pertinent prior studies are available for comparison. TECHNIQUE: PA and lateral views of the chest obtained. FINDINGS: The lungs are mildly hypoexpanded with minimal basilar markings well likely due to atelectasis. No focal infiltrate, effusion, edema, or pneumothorax. Cardiac and mediastinal silhouettes are within normal limits for technique. No acute bony abnormality seen XR/XR chest 2V IMPRESSION: Mildly hypoexpanded with minimal basilar markings more likely due to atelectasis. Electronically signed by: Gagan Lezama MD 11/06/2023 07:21 PM EDT
--- NOTE | 2023-11-06 16:25 | ECG_ITS ---
Test Reason : CP Blood Pressure : / mmHG Vent. Rate : 106 BPM Atrial Rate : 106 BPM P-R Int : 122 ms QRS Dur : 082 ms QT Int : 344 ms P-R-T Axes : 015 -04 019 degrees QTc Int : 456 ms Sinus tachycardia with Premature atrial complexes Inferior infarct , age undetermined Abnormal ECG No previous ECGs available Referred By: Generic ED Physician Electronically Signed By:JOSEFA DUMONT
[2023-11-06 17:22] VITALS: BP 121/83; PULSE 112; RESP 18; TEMP 36.8; O2SAT 94; BMI 31.0
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
[2023-11-06 18:24] LABS: Basophils Percent Auto 0.3 % (0-2); Eosinophils Absolute Auto 0.1 X10*3/uL (0.0-0.4); Eosinophils Percent Auto 0.5 % (0-4); Hematocrit 48.1 % (42.0-52.0); Hemoglobin 16.8 g/dl (14.0-18.0); Imm Gran Abs Auto 0.04 X10*3/uL (0.00-0.03); Imm Gran Pct Auto 0.3 % (0.0-0.4); Lymphocytes Absolute Auto 1.6 X10*3/uL (1.2-4.9); MANUAL DIFF FLAG SCAN; Mean Corpuscular HGB Conc 34.9 g/dl (31.0-36.0); Mean Corpuscular Hemoglobin 29.7 pg (27.0-33.0); Mean Corpuscular Volume 85.1 fL (80.0-98.0); Mean Platelet Volume 8.8 fL (9.4-12.4); Monocytes Absolute Auto 1.8 X10*3/uL (0.1-1.2); Monocytes Percent Auto 14.3 % (2-11); Neutrophils Absolute Auto 8.9 x10*3/uL (2.0-8.3); Neutrophils Percent Auto 71.6 % (45-73); Platelet Count 284 X10*3/uL (160-400); Red Blood Count 5.65 X10*6/uL (4.60-5.80); Red Cell Distribution Width 12.5 % (11.0-16.0); SCAN SMEAR FLAG 1; White Blood Count 12.5 X10*3/uL (4.8-10.8)
[2023-11-06 18:36] LABS: Alanine Aminotransferase 20 U/L (0-40); Albumin Level 4.1 g/dL (3.5-5.0); Alkaline Phosphatase 77 U/L (39-117); Anion Gap 17 (12-20); Aspartate Amino Transferase 21 U/L (5-37); Bilirubin Direct 0.4 mg/dL (0.0-0.5); Bilirubin Total 1.2 mg/dL (0.0-1.0); Blood Urea Nitrogen 19 mg/dL (9-16); Calcium 9.6 mg/dL (8.4-10.2); Carbon Dioxide 25 mmol/L (22-29); Chloride 95 mmol/L (96-108); Creatinine Clr Calc Pharmacy 101.3; Estimated Glomerular Filt Rate > 60; Glucose Random 103 mg/dL (60-115); Magnesium 2.3 mg/dL (1.6-2.6); Potassium 4.5 mmol/L (3.3-5.1); Sodium 132 mmol/L (135-145); Total Protein 8.3 g/dL (6.5-8.0)
[2023-11-06 18:58] LABS: Influenza A PCR NEGATIVE (Negative); Influenza B PCR NEGATIVE (Negative); Resp Syncy Virus RNA Qual PCR NEGATIVE (Negative); SARS COV2 PCR INHOUSE NEGATIVE (Negative)
[2023-11-06 19:19] LABS: SLIDE REVIEW VERIFIED
[2023-11-06 19:50] LABS: Appearance Urine Clear; Color Urine Dark Yellow; Glucose Urine UA Negative (Negative); Leukocyte Esterase Urine Negative (Negative); Nitrite Urine Negative (Negative); PH 5.5 (5.0-9.0); Specific Gravity - Urine 1.025 (1.005-1.025); UMIC TRIGGER UACC YES; Urine Blood Moderate (2+) (Negative); Urine Ketones 40 mg/dL (Negative); Urine Protein Trace mg/dL (Neg-Trace)
[2023-11-06 20:05] LABS: Bacteria Urine None Seen (None Seen); Squamous Epithelial Cell Urine 0-2 /HPF (0-2); WBC Urine 0-5 /HPF (0-5)
[2023-11-06] MEDS: Lactated Ringers 1,000 ML 999 ML IV (20:29)
[2023-11-06 21:04] VITALS: BP 111/79; PULSE 96; RESP 16; TEMP 36.7; O2SAT 93
[2023-11-06] MEDS: ondansetron HCL 4 MG/2 ML VIAL IVPUSH (22:02)
--- NOTE | 2023-11-06 22:30 | PC.NURSE ---
pt argumentative with discharge instructions, sts he should be provided with stronger pain medications and he will be persuing legal action against the ordering physician for not giving him what he wanted. attempted to review instructions further, pt sts dont bother, im not signing anything and im not agreeing to anything pt rfused discharge instructions, swearing and telling this rn that this will be the last place i and the ordering provider work at. escorted to exit via wheelchair.
[2023-11-06 22:33] VITALS: BP 111/79; PULSE 96; RESP 16; TEMP 36.7; O2SAT 93
--- NOTE | 2023-11-06 22:49 | PC.NURSE ---
Pt outside of triage yelling very upset trying to get in triage room stating his IV was bleeding. Pt had IV removal not bleeding but given new bandage anyway. Pt yelling that the doctor didn't give him any of the medications he asked for and said he would give. This RN spoke with Primary RN who informed this chart writer that the pt was refused all of the medications that were offered by the provider and refused his discharge paperwork. Pt informed of this and requested that the prescription cough medicine be ordered. Pt informed that the only prescription ordered was for zofran and pt stated I don't want that, that's not what I asked for , pt said he would be filing complaint to hospital against the doctor which he was informed was his right. Pt stated I am going to say everything bad I can think of against him . Pt then left the ED.
== END 2023-11-06 22:35 | disposition home or self-care (01) ==
PROVIDERS: Physician Assistant; Emergency Provider Emergency Medicine
DX: M79.10 Myalgia, unspecified site (principal); K52.9 Noninfective gastroenteritis and colitis, unspecified; E86.0 Dehydration; R53.1 Weakness; R07.89 Other chest pain; R00.0 Tachycardia, unspecified; Z79.899 Other long term (current) drug therapy; Z03.818 Encounter for observation for suspected exposure to other biological agents ruled out
CPT/HCPCS: 0241U; 36415; 71046; 80048; 80076; 81001; 83735; 85025; 93005; 96361; 96374; 99284; 99285; J2405; J7120

== ENCOUNTER 2024-08-16 09:20 | Emergency (ER) | payer MEDICARE, SELFPAY ==
--- NOTE | ~2024-08-16 | XR_ITS ---
CLINICAL HISTORY: pain, injury 4 view right knee Comparison: None provided Findings: No fractures or dislocations. Mild tricompartmental degenerative change. No joint effusion. No radiopaque foreign body. IMPRESSION: Tricompartmental degenerative change without evidence of fracture. This document has been electronically signed by: Rubens Brown MD on 08/16/2024 10:51:50
[2024-08-16 09:26] VITALS: BP 122/87; PULSE 85; RESP 20; TEMP 36.1; O2SAT 99; BMI 33.2
--- NOTE | 2024-08-16 09:55 | ED_ITS ---
HPI - General Adult General Chief complaint: Extremity Injury, Lower Stated complaint: pain in knee Time Seen by Provider: 08/16/24 09:54 Source: patient and family (patient's ) Mode of arrival: wheelchair Limitations: no limitations History of Present Illness ED Provider: Jesika Jackson PA-C HPI narrative: Patient is a 64 year old assigned male at with a history of DVT in [facility] in 2020 and multiple surgeries to the right lower leg presenting to the emergency department today with right knee pain. Patient states that he tripped and landed on his right knee yesterday. Patient states that his knee dislocated and then his straightened the leg out and it went back into place. Patient denies any head strike, loss of consciousness, dizziness, lightheadedness, abdominal pain, nausea, vomiting, fever, chills, blurry vision, double vision, loss of vision, chest pain, difficulty breathing, shortness of breath, back pain, night sweats, pain with urination, increased urinary frequency, increased urinary urgency, blood in his urine or stool, syncope or a near syncopal episode, bowel incontinence, bladder incontinence, or any other complaints at this time. Onset (ago): day(s) (1) Location: right and lower extremity Relieving factors: none Exacerbating factors: movement Associated symptoms: denies other symptoms Treatments prior to arrival: other (self applied NOÉ wrap) Related Data Previous Rx's ?Medication ?Instructions ?Recorded clindamycin HCl 300 mg capsule 300 mg PO TID 10 days # 30 caps 12/03/22 ondansetron 4 mg disintegrating 4 mg PO Q8H PRN nausea and 12/06/22 tablet vomiting 3 days #10 tabs oxycodone-acetaminophen 5 mg-325 1 tab PO Q6H PRN robinson re pain 12/06/22 mg tablet (Percocet) (scale score 7-10) #12 tabs clindamycin HCl 300 mg capsule 300 mg PO TID 7 days #2 1 caps 01/07/23 oxycodone 5 mg capsule 5 mg PO TID PRN pain 3 days #9 caps 01/07/23 oxycodone 5 mg tablet 5 mg PO Q8H PRN severe pain (scale 01/07/23 score 7-10) #9 tabs acetaminophen 500 mg tablet 500 mg PO Q6H PRN pain #30 tabs 02/05/23 (Tylenol Extra Strength) clindamycin HCl 300 mg capsule 300 mg PO TID 7 days #2 1 caps 02/05/23 oxycodone-acetaminophen 5 mg-325 1 tab PO Q6H PRN pain #7 tabs 02/05/23 mg tablet (Percocet) clindamycin HCl 300 mg capsule 300 mg PO TID 10 days # 30 caps 02/07/23 oxycodone 5 mg tablet 5 mg PO Q8H PRN pain 3 days #9 tabs 02/07/23 ondansetron 4 mg disintegrating 4 mg PO Q8H 4 days #12 tabs 11/06/23 tablet oxycodone 10 mg tablet 10 mg PO Q8H PRN pain #2 tab s 08/16/24 Allergies Allergy/AdvReac Type Severity Reaction Status Date / Time ketorolac (From Toradol) Allergy Rash Verified 08/16/24 09:31 Penicillins Allergy Hives Verified 08/16/24 09:31 Review of Systems Constitutional: Constitutional: Reports no additional constitutional com plaints, Denies chills, Denies fever(s) and Denies night sweats Eyes: Eyes: Reports no additional eye complaints, Denies blurry vision, Denies change in vision, Denies diplopia, Denies eye discharge, Denies loss of vision and Denies eye pain ENT: Denies dizziness Cardiovascular: Cardiovascular: Reports no additional cardiovascular complaints, Denies chest pain, Denies lightheadedness, Denies Loss of Consciousness and Denies dyspnea Respiratory: Respiratory: Reports no additional respiratory complaints and Denies dyspnea Gastrointestinal: Gastrointestinal: Reports no additional gastrointestinal complaints, Denies abdominal pain, Denies melena, Denies hematochezia, Denies change in bowel habits and Denies change in stool character Genitourinary: Genitourinary: Reports no additional male genitourinary complaints, Denies hematuria, Denies oliguria, Denies difficulty urinating, Denies dysuria, Denies urinary frequency, Denies urinary hesitancy, Denies urinary incontinence and Denies urinary urgency Musculoskeletal: Musculoskeletal: Reports no additional musculoskeletal complaints, Denies numbness and Denies tingling Comments: Right knee pain Neurologic: Denies dizziness, Denies loss of vision, Denies numbness and Denies tingling Psychiatric: Psychiatric: Reports no additional psychiatric complaints Endocrine: Endocrine: Reports no additional endocrine complaints Hematologic/Lymphatic: Hematologic/Lymphatic: Reports no additional hematologic/lymphatic complaints Allergic/Immunologic: Allergic/Immunologic: Reports no additional allergic/immunologic complaints PMFSH Past Medical History Attestation statement: The following information was validated with the patient. (all information validated with the patient's ) Source: old records reviewed, obtained from family (patient's provided additional history and confirmed the history provided by the patient) and nursing notes reviewed Social History Social History Advance Directives: No Advance Directives Information Provided: Yes Do you have a plan to hurt others: No Plan Physical Exam ED Vital Signs: Vital Signs - 24 hr 08/16/24 09:26 08/16/24 11:22 08/16/24 11:28 Temperature 97 F 97.9 F 97.9 F Pulse Rate 85 73 73 Respiratory Rate 20 16 16 Blood Pressure 122/87 137/61 137/61 Pulse Oximetry 99 98 98 Oxygen Delivery Method Room Air Room Air Room Air BMI result Body Mass Index 33.2 Const General: cooperative, no acute distress, alert and awake Nutritional Appearance: well nourished Orientation/consciousness: patient oriented x3 HENMT Head: Yes normal to inspection and Yes atraumatic Ears: hearing grossly normal bilaterally and external ears normal General nose exam: Normal external nose present, no nasal discharge noted and no epistaxis Face and sinus: Yes normal facial exam, No abrasion and No laceration Mouth: Normal oral and palatal mucosa present, no drooling and no muffled voice Eyes General: appearance normal, both eyes and all related structures Periorbital: periorbital findings normal Eyelids: Yes eyelids normal Conjunctivae: conjunctivae normal Pupils: Equal, round and reactive pupils present EOM: EOMs intact bilaterally Neck Neck: Yes normal visual inspection, Yes full ROM and Yes no lymphadenopathy Resp Effort & Inspection: normal respiratory effort and able to speak in complete sentences Neuro General: patient oriented x3, moves all extremities and CN's II-XI intact bilate rally Cranial nerves: Yes Equal, round and reactive pupils present Cognition (Neuro): normal cognition Extrem Other: Patient is able to move the right knee however, he would like not to secondary to pain Patient has a lower leg surgical scar that is well healed and obviously very old General: Yes capillary refill normal Psych Appearance: grossly normal Mental Status: mental status grossly normal Affect: normal affect Attitude: cooperative Thought process: Normal thought process present Thought content: Normal thought content present Insight: Good insight present (Psych) Medications Administered Discontinued Medications Generic Name Dose Route Start Last Admin Trade Name Gila PRN Reason Stop Dose Admin Oxycodone HCl 10 mg 08/16/24 11:00 08/16/24 11:23 Oxycodone Hcl Immed Release 5 Mg Tablet PO 08/16/24 11:01 10 mg ONCE ONE Administration Medical Decision Making Medical Decision Making [facility] Narrative: Patient is a 64 year old assigned male at with a history of DVT in [facility] in 2020 and multiple surgeries to the right lower leg presenting to the emergency department today with right knee pain. Patient's physical exam was as noted in the physical exam portion of this note. Patient's right knee x-ray showed no acute process. I explained my physical exam findings as well as all test results to the patient and the patient's . I answered all questions asked by the patient and the patient's . Patient requested, several times, something for pain. He specifically asked for percocet and stated he takes 10s regularly at home - in [place]. I reviewed the patient's [employer] and he was prescribed (8) 5mg oxycodone on 08/10/2024 and (6) 5mg oxycodone on 08/09/2024 from [facility] in [place]. Patient is regularly prescribed benzos and gabapentin. I explained to the patient that given his [employer], age, and recent fall + injury, I am uncomfortable prescribing him narcotics. Patient was adamant that he had nothing to last him the next 48 hours until he can get back to [place]. I gave the patient 1 dose here in the department and sent in 2 tablets to last him until he is able to return to [place]. Patient's knee was placed in an immobilizer, without incident. Patient's PMS was intact prior to and after immobilizer placement. I stressed the importance of the patient taking his medication as directed (either prescribed or as the over the counter packaging recommends). I stressed the importance of the patient following up with his primary care provider and the orthopedic team. I stressed the importance of the patient returning to the emergency department immediately if his symptoms were to worsen or if he were to develop any dizziness, shortness of breath, difficulty breathing, chest pain, blurry vision, loss of vision, nausea, vomiting, abdominal pain, fever, chills, back pain, or any other complaints. Patient and the patient's verbalized agreement and understanding with this treatment plan and discharge. Differential Diagnosis Differential Diagnoses: The differential diagnosis associated with the presentation includes Knee sprain Knee dislocation + reduction Admission/Observation Consideration of admission/observation: Escalation of care including admission/observation considered Patient would have been admitted to the hospital had his work up had any findings where hospital admission was appropriate and his clinical presentation warranted hospital admission. Independent Interpretation I performed an independent interpretation of an: Plain X-Ray Interpretation: My interpretation is in agreement with the radiologist's impression of this imaging study. CLINICAL HISTORY: pain, injury 4 view right knee Comparison: None provided Findings: No fractures or dislocations. Mild tricompartmental degenerative change. No joint effusion. No radiopaque foreign body. IMPRESSION: Tricompartmental degenerative change without evidence of fracture. This document has been electronically signed by: Rubens Brown MD on 08/16/2024 10:51:50 Dictated By: Rubens Brown MD Signed By: Electronically signed by Rubens Brown MD 08/16/24 1053 Radiology Impression Discussion of test interpretation with radiology: I have reviewed the radiologist's reading. Independent Historian Clinical information obtained from an independent historian. History obtained from or confirmed by: Spouse (Patient's provided additional history and confirmed the history provided by the patient.) Prescription Management I considered prescription management with: Pain Medication (patient prescribed pain medication) Discharge Plan Discharge Clinical Impression: Knee sprain Patient Disposition: Home, Self-Care Instructions: Knee Sprain (DC) Additional Instructions: Follow up with a primary care provider and the orthopedic team. Return to the emergency department immediately if your symptoms worsen or if you develop any numbness, tingling, dizziness, shortness of breath, difficulty breathing, chest pain, blurry vision, loss of vision, nausea, vomiting, abdominal pain, fever, chills, back pain, or any other complaints. If you do not have a primary care provider - call any of the below numbers to establish and follow up with a primary care provider. [facility] ([place]) [phone] [place] [address], [address] [facility] ([address] [place]) [phone] [place] [address], [address] [facility], [address] [facility] ([address] [place]) [phone] [place] [address], [address] [facility], [address] [facility] ([place]) [phone] [place] [address] 2 [facility], [address] [facility] Family Medicine [phone] [address] [facility], [address] Please see the information below about our Patient Portal. If you are not yet enrolled in the [facility] Patient Portal, you will receive an enrollment email invitation following your visit to any [facility] setting. You may also self-enroll in the Patient Portal by visiting our website: [email or web address] The following information is required to access the Patient Portal: - Your [facility] Medical Record Number - Your personal home email address (must match what is in your electronic medical record, Registration staff can assist with this) - Name - Date of Capabilities of the Patient Portal: - Message some providers - View upcoming appointments - Access your health summary, medical history, and visit history - View current conditions and allergies - View procedure and lab results - View your medications, including guidelines, side effects, and precautions - Complete pre-appointment questionnaires requested by your provider - Ready summary reports of your office visits and procedures To access the Patient Portal Mobile Boogie, follow these directions: - Search [employer] in the Boogie Store or Google Play Store - Download the Boogie - Search for [facility] - Enter your login/password Prescriptions: New oxycodone 10 mg tablet 10 mg PO Q8H PRN (Reason: pain) Qty: 2 0RF Rx Instructions: Partial Fill upon patient request. No Action clindamycin HCl 300 mg capsule 300 mg PO TID 10 Days Qty: 30 0RF oxycodone 5 mg tablet 5 mg PO Q8H PRN (Reason: pain) 3 Days Qty: 9 0RF Rx Instructions: Partial Fill upon patient request. ondansetron 4 mg tablet,disintegrating 4 mg PO Q8H 4 Days Qty: 12 0RF clindamycin HCl 300 mg capsule 300 mg PO TID 10 Days Qty: 30 0RF oxycodone-acetaminophen [Percocet] 5-325 mg tablet 1 tab PO Q6H PRN (Reason: severe pain (scale score 7-10)) Qty: 12 0RF Rx Instructions: Partial Fill upon patient request. ondansetron 4 mg tablet,disintegrating 4 mg PO Q8H PRN (Reason: nausea and vomiting) 3 Days Qty: 10 0RF clindamycin HCl 300 mg capsule 300 mg PO TID 7 Days Qty: 21 0RF oxycodone 5 mg capsule 5 mg PO TID PRN (Reason: pain) 3 Days Qty: 9 0RF Rx Instructions: Partial Fill upon patient request. oxycodone 5 mg tablet 5 mg PO Q8H PRN (Reason: severe pain (scale score 7-10)) Qty: 9 0RF Rx Instructions: Partial Fill upon patient request. clindamycin HCl 300 mg capsule 300 mg PO TID 7 Days Qty: 21 0RF oxycodone-acetaminophen [Percocet] 5-325 mg tablet 1 tab PO Q6H PRN (Reason: pain) Qty: 7 0RF Rx Instructions: Partial Fill upon patient request. acetaminophen [Tylenol Extra Strength] 500 mg tablet 500 mg PO Q6H PRN (Reason: pain) Qty: 30 0RF Referrals: [facility] [Provider Group] Referral Note: Call to establish and follow up with the orthopedic team for your right knee sprain. Interventions: ED Discharge Assessment Last Done: 08/16/24 11:28 Discharge Date/Time: 08/16/24 11:28 Print Language: Burkinan
[2024-08-16 11:22] VITALS: BP 137/61; PULSE 73; RESP 16; TEMP 36.6; O2SAT 98
[2024-08-16] MEDS: oxyCODONE HCl Immed Release 5 MG TABLET 10 MG PO (11:23)
[2024-08-16 11:28] VITALS: BP 137/61; PULSE 73; RESP 16; TEMP 36.6; O2SAT 98
== END 2024-08-16 11:28 | disposition home or self-care (01) ==
PROVIDERS: Emergency Provider Emergency Medicine
DX: S83.91XA Sprain of unspecified site of right knee, initial encounter (principal); M25.561 Pain in right knee; X58.XXXA Exposure to other specified factors, initial encounter; Y93.9 Activity, unspecified; Y92.9 Unspecified place or not applicable; Y99.8 Other external cause status
CPT/HCPCS: 73562; 99283; 99284

== ENCOUNTER → 2024-08-16 09:54 | Outpatient (BNV) | payer MEDICARE, SELFPAY | PROVIDERS: Visit Provider Radiology Vascular & Interventional Radiology | DX: M17.11 Unilateral primary osteoarthritis, right knee (principal) | CPT/HCPCS: 73562 ==

== ENCOUNTER 2024-11-25 16:06 | Emergency (ER) | payer MEDICARE, SELFPAY ==
--- OUTSIDE RECORDS SUMMARY | 2019-02-21 01:00 | XMS_ITS | Encounter Summary ---
Author Organization [facility] [place] [address] Care Team Providers Care Cost Estimator Name Role Phone Unavailable Primary Care Provider Unavailabl e Encounter Details Date Type Department Care Team (Late st Contact Info) Description 02/21/[address] [facility] [address] [place] [id number] Jayant Mcgovern DO [address] [place] [address] Mixed hyperlipidemia Social History Tobacco Use Types Packs/Day Years Used Date Smoking Tobacco: Never Smokeless Tobacco: Never Alcohol Use Standard Drinks/Week Comments Not Currently 0 (1 standard drink = 0.6 oz pur e alcohol) LAST DRINK 24 YEARS AGO. Interpersonal Safety Answer Date Record ed Physical Abuse Unrecognized value 12/28/2023 Verbal Abuse Unrecognized value 12/28/2023 Education Answer Date Recorded What is the highest level of school you have completed or the highest degree you have received? 12th grade 11/08/2021 Sex and Gender Information Value Date Recorded Sex Assigned at Male 07/20/2024 2:18 PM EDT Legal Sex Male 9:37 PM EDT Gender Identity Male 07/20/2024 2:18 PM EDT Sexual Orientation Straight 07/20/2024 2: 18 PM EDT Occupation Industry Job Start Date Job End Date RETIRED - [employer] Not on file Not o n file Not on file COVID-19 Exposure Response Date Recorded In the last 10 days, have yo u been in contact with someone who was confirmed or suspected to have Coronavirus/COVID-19? No / Unsure 09/01/2022 11:04 AM EDT documented as of this encounter Functional Status * Calculated C-SSRS Risk Score (Lifetime/Recent) Answer Date of Assessment Author No Risk Indicated 07/20/2024 2:55 PM EDT Jana Lund RN * Suicidal Ideation Question Answer Date of Assessment Author 1. Wish to be (Lifetime) No 12/28/2023 5:06 AM Chavez Corral RN 2. Non-Specific Active Suicidal Thoughts (Lifetime) No 12/28/2023 5:06 AM Chavez Corral RN * Suicidal Behavior Question Answer Date of Assessment Author Actual Attempt (Lifetime) No 12/28/2023 5:06 AM Chavez Corral RN Has subject engaged in non-suicidal self-injurious behavior? (Lifetime) No 12/28/2023 5:06 AM Jean Marie Corral RN Interrupted Attempts (Lifetime) No 12/28/2023 5:06 AM Nsia Corral RN Aborted or Self-Interrupted Attempt (Lifetime) No 12/28/2023 5:06 AM Nisa Corral RN Preparatory Acts or Behavior (Lifetime) No 12/28/2023 5:06 AM Nisa Corral RN * [place] Suicide Severity Rating Scale (Screener/Recent Self-Report) Question Answer Date of Assessment Author 1. Wish to be (Past 1 Month) No 025 2:55 PM EDT Jana Lund RN 2. Non-Specific Active Suici carlos Thoughts (Past 1 Month) No 07/20/2024 2:55 PM EDT Jolanta Lund RN 6. Suicidal Behavior (Lifetime) No 2:55 PM EDT Jana Lund RN documented as of this encounter Plan of Treatment Not on file documented as of this encounter Visit Diagnoses Diagnosis Mixed hyperlipidemia documented in this encounter
--- OUTSIDE RECORDS SUMMARY | 2019-03-31 01:00 | XMS_ITS | Encounter Summary ---
Author Organization [facility] [place] [address] Care Team Providers Care Television News Photographer Name Role Phone Unavailable Primary Care Provider Unavailabl e Encounter Details Date Type Department Care Team (Late st Contact Info) Description 03/31/[address] 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
--- OUTSIDE RECORDS SUMMARY | 2024-07-25 06:51 | XMS_ITS | Continuity of Care Document ---
Author Organization [facility] Address [address] [place] [address] Care Team Providers Care Machinist Name Role Phone Provider MD, Test Unavailable Unavailable Allergies, Adverse Reactions, Alerts Substance Reaction Status Criticality Penicillins Active No Information Procedures Procedure Date OFFICE/OUTPATIENT VISIT, NEW Advance Directives Directive Yes / No Effective Date File Name No Information Encounters Encounter Description Practice Location Reason(s) For Visit Diagnoses Date Provider Providers Copied on Encounter [facility], [address], [place], [place], [id number], [facility] [place] No Information Provider Test. . OFFICE/OUTPATI ENT VISIT, [facility], [address], [place], [place], [id number], [facility] [place] Neck Pain (chief complaint)L eg Pain (chief complaint) Chronic pain syndromeCervi calgiaLumbago Radiculopathy , cervical regionRadicul opathy, lumbar regionLong term (current) use of opiate analgesic Garciaankush Ahujaduc. [address], [address], [place], [address], [place]. tel:[phone] Family History Family Member Type Diagnosis Age At Onset Mother Problem (finding) Family history of Cance r, unknown Father Problem (finding) Family history of Coronary artery disease Payers Payer name Insurance type Covered constitution party ID Authoriza tion(s) Medicare [facility] [id number] Social History Type Description Quantity Date Captured Comments Alcohol Use Details Unknown Caffeine Use Details Unknown Tobacco Use Status No Information Smoking Status No Information Sex Male Chief Complaint And Reason For Visit No Information Reason For Referral Reason For Referral No Information Plan Of Treatment Date Type Action Status Referral Ordered: Physical Therapy (related to Radiculopathy, lumbar region) ordered Referral Ordered: MRI C-SPINE W/O CONTRAST ordered Referral Ordered: X-Ray, Hips, Bilateral, W Pelvis 3-4 Views ordered Referral Ordered: MRI L-SPINE W/O CONTRAST ordered History Of Present Illness Encounter Date Complaint History Of Prese nt Illness Neck Pain Onset: 34 years ago. The problem is severe. Duration: 1 Hour. Location of pain is bilateral lateral neck and bilateral posterior neck. The client describes the pain as Aching, Stabbing and Throbbing. Pertinent negatives include bladder incontinence. Additional information:. pt gets relief with nothing. Leg Pain Onset: 34 years ago. Duration: 1 Hour. Severity level is 8. It occurs intermittently and is fluctuating. Location: right. The pain is aching and sharp. Additional information: pt gets relief with nothing. Functional Status Date Functional Assessmen t No Information Instructions Date Instruction Additional Infor caesar Patient counseled about the dangers of concurrent usage of BENZODIAZEPIN and NARCOTICS which include increased respiratory depression and possible . Patient verbalized understanding of the risks involved and agreed to wean off BENZODIAZEPIN with the assistance of prescribing physician within 8 wks or less. Related to Chronic pain syndrome Assessments Type Assessment Date No Information Patient Care Teams Name Effective Dates (start - stop) Status Members No Information
--- NOTE | ~2024-11-25 | XR_ITS ---
EXAMINATION: XR KNEE, RIGHT CLINICAL INFORMATION: Right knee pain COMPARISON: None available. TECHNIQUE: Four views of the right knee. FINDINGS: There is mild narrowing of the medial and lateral joint spaces. Small tricompartmental marginal osteophytes are present. There is no joint effusion. There is a healed fracture involving the proximal diaphysis of the fibula and central diaphysis of the tibia. XR/XR knee RT 4V IMPRESSION: Osteoarthritis. Electronically signed by: Yon Duran MD 11/25/2024 05:01 PM EDT
[2024-11-25 16:14] VITALS: BP 131/85; PULSE 91; RESP 20; TEMP 37.1; O2SAT 97; BMI 36.9
--- NOTE | 2024-11-25 16:27 | ED_ITS ---
HPI - General Adult General Chief complaint: Extremity Injury, Lower Stated complaint: rt knee keeps popping out of socket Time Seen by Provider: 11/25/24 21:16 Source: patient Limitations: other (Poor historian) History of Present Illness ED Provider: Iza Vilchis PA-C HPI narrative: 64-year-old male with chronic knee pain on chronic opiate therapy, who requires a cane to ambulate, presents with right knee pain. Patient states he fell 2 days ago, falling forward landing on the knees. Patient has been ambulatory since the fall. Related Data Previous Rx's ?Medication ?Instructions ?Recorded clindamycin HCl 300 mg capsule 300 mg PO TID 10 days # 30 caps 12/03/22 ondansetron 4 mg disintegrating 4 mg PO Q8H PRN nausea and 12/06/22 tablet vomiting 3 days #10 tabs oxycodone-acetaminophen 5 mg-325 1 tab PO Q6H PRN robinson re pain 12/06/22 mg tablet (Percocet) (scale score 7-10) #12 tabs clindamycin HCl 300 mg capsule 300 mg PO TID 7 days #2 1 caps 01/07/23 oxycodone 5 mg capsule 5 mg PO TID PRN pain 3 days #9 caps 01/07/23 oxycodone 5 mg tablet 5 mg PO Q8H PRN severe pain (scale 01/07/23 score 7-10) #9 tabs acetaminophen 500 mg tablet 500 mg PO Q6H PRN pain #30 tabs 02/05/23 (Tylenol Extra Strength) clindamycin HCl 300 mg capsule 300 mg PO TID 7 days #2 1 caps 02/05/23 oxycodone-acetaminophen 5 mg-325 1 tab PO Q6H PRN pain #7 tabs 02/05/23 mg tablet (Percocet) clindamycin HCl 300 mg capsule 300 mg PO TID 10 days # 30 caps 02/07/23 oxycodone 5 mg tablet 5 mg PO Q8H PRN pain 3 days #9 tabs 02/07/23 ondansetron 4 mg disintegrating 4 mg PO Q8H 4 days #12 tabs 11/06/23 tablet oxycodone 10 mg tablet 10 mg PO Q8H PRN pain #2 tab s 08/16/24 Allergies Allergy/AdvReac Type Severity Reaction Status Date / Time ketorolac (From Toradol) Allergy Rash Verified 11/25/24 16:17 Penicillins Allergy Hives Verified 11/25/24 16:17 Review of Systems Review of Systems: Yes all other systems are reviewed and are negative Constitutional: Constitutional: Denies fatigue and Denies fever(s) Musculoskeletal: Musculoskeletal: Reports arthralgias and Denies joint swelling Endocrine: Endocrine: Denies fatigue [facility] Past Medical History Attestation statement: The following information was validated with the patient. Social History Social History Advance Directives: No Advance Directives Information Provided: No Physical Exam ED Vital Signs: Vital Signs - 24 hr 11/25/24 16:14 Temperature 98.7 F Pulse Rate 91 Respiratory Rate 20 Blood Pressure 131/85 Pulse Oximetry 97 Oxygen Delivery Method Room Air BMI result Body Mass Index 36.9 Const Other: Alert Orientation/consciousness: patient oriented x3 Resp Effort & Inspection: normal respiratory effort Cardio Other: Normal peripheral perfusion Skin Other: Warm dry no rash Neuro Other: Antalgic gait General: patient oriented x3, no focal motor deficits and CN's II-XI intact bilaterally Extrem Other: No deformity noted of the right knee able to flex and extend no bruising Psych Other: Somewhat belligerent Course Course Course Narrative: RME: 64-year-old male presents to ED for right knee pain. Patient states history of knee dislocation which occurred recently yesterday which is put back in place. Patient was informed he may be due to a knee replacement surgery. X-ray ordered Medications Administered Discontinued Medications Generic Name Dose Route Start Last Admin Trade Name Gila PRN Reason Stop Dose Admin Prednisone 10 mg 11/25/24 22:06 11/25/24 22:32 Prednisone 10 Mg Tablet PO 11/25/24 22:07 Not Given ONCE ONE Medical Decision Making Medical Decision Making MDM Narrative: 64-year-old male with chronic knee pain on chronic opiate therapy, who requires a cane to ambulate, presents with right knee pain. Patient states he fell 2 days ago, falling forward landing on the knees. Patient has been ambulatory since the fall. Problem: Chronic knee pain History: Per patient I have considered the following differential diagnoses: Fracture, dislocation, sprain, contusion Plan: X-rays ordered from triage, there were no acute injuries, he has a arthritis. The patient is actively asking for opiate pain medication. In review of his prescription monitoring program, the patient has an active script for oxycodone, I informed the patient that I would not be giving additional oxycodone for arthritis, he does not have an acute injury, he should also have oxycodone at home if he has taken as directed. I explained to the patient that I would be happy to send him with a an anti-inflammatory. The patient declines he is leaving the emergency department without the benefit of his discharge instructions. I have independently reviewed the following tests: X-ray right knee:FINDINGS: There is mild narrowing of the medial and lateral joint spaces. Small tricompartmental marginal osteophytes are present. There is no joint effusion. There is a healed fracture involving the proximal diaphysis of the fibula and central diaphysis of the tibia. XR/XR knee RT 4V IMPRESSION: Osteoarthritis. Differential Diagnosis Differential Diagnoses: The differential diagnosis associated with the presentation includes See medical decision-making Admission/Observation Consideration of admission/observation: Escalation of care including admission/observation considered Not applicable Lab Data Labs: Lab Results 11/25/24 Range/Units 19:54 POC Glucose 96 (60-115) mg/dL Radiology Impression Discussion of test interpretation with radiology: I have reviewed the radiologist's reading. Discharge Plan Discharge Clinical Impression: Osteoarthritis of right knee Patient Disposition: Home, Self-Care Instructions: Osteoarthritis (ED) Additional Instructions: Left without the benefit of their discharge instructions. Prescriptions: No Action clindamycin HCl 300 mg capsule 300 mg PO TID 10 Days Qty: 30 0RF oxycodone 5 mg tablet 5 mg PO Q8H PRN (Reason: pain) 3 Days Qty: 9 0RF Rx Instructions: Partial Fill upon patient request. ondansetron 4 mg tablet,disintegrating 4 mg PO Q8H 4 Days Qty: 12 0RF clindamycin HCl 300 mg capsule 300 mg PO TID 10 Days Qty: 30 0RF oxycodone-acetaminophen [Percocet] 5-325 mg tablet 1 tab PO Q6H PRN (Reason: severe pain (scale score 7-10)) Qty: 12 0RF Rx Instructions: Partial Fill upon patient request. ondansetron 4 mg tablet,disintegrating 4 mg PO Q8H PRN (Reason: nausea and vomiting) 3 Days Qty: 10 0RF clindamycin HCl 300 mg capsule 300 mg PO TID 7 Days Qty: 21 0RF oxycodone 5 mg capsule 5 mg PO TID PRN (Reason: pain) 3 Days Qty: 9 0RF Rx Instructions: Partial Fill upon patient request. oxycodone 5 mg tablet 5 mg PO Q8H PRN (Reason: severe pain (scale score 7-10)) Qty: 9 0RF Rx Instructions: Partial Fill upon patient request. clindamycin HCl 300 mg capsule 300 mg PO TID 7 Days Qty: 21 0RF oxycodone-acetaminophen [Percocet] 5-325 mg tablet 1 tab PO Q6H PRN (Reason: pain) Qty: 7 0RF Rx Instructions: Partial Fill upon patient request. acetaminophen [Tylenol Extra Strength] 500 mg tablet 500 mg PO Q6H PRN (Reason: pain) Qty: 30 0RF oxycodone 10 mg tablet 10 mg PO Q8H PRN (Reason: pain) Qty: 2 0RF Rx Instructions: Partial Fill upon patient request. Discharge Date/Time: 11/25/24 23:05 Print Language: Indian
[2024-11-25 20:16] LABS: Glucose, Whole Blood 96 mg/dL (60-115)
--- OUTSIDE RECORDS SUMMARY | 2024-11-25 21:53 | XMS_ITS | Clinical Summary ---
Author Organization [facility] Address [address] [facility] [place] [address] Phone Care Team Providers Care Radio Performer Name Role Phone Kelvin Vila NP Primary Care Provider [phone] Allergies Active Allergy Reactions Criticality Noted Date Comments Codeine Hives 07/20/2021 Ibuprofen Nausea Only 07/20/2021 GI bleed Ketorolac Other Medium 07/20/2021 rash Penicillins Itching Medium 07/20/2021 Medications atorvastatin (LIPITOR) 40 mg tablet Take 1 tablet by mouth 1 (one) time each day. Active cholecalciferol (VITAMIN D-3) 50 mcg (2,000 unit) capsule Take 1 capsule by mouth 1 (one) time each day. Active betamethasone valerate (VALISONE) 0.1 % cream 1 Active B complex-vitamin C tablet Take 1 tablet by mouth 1 (one) time each day. Active ascorbic acid (VITAMIN C) 500 mg tablet Take 500 mg by mouth 1 (one) time each day. Active citalopram (CeleXA) 20 mg tablet Take 1 tablet (20 mg total) by mouth 1 (one) time each day. 90 each 3 2 Active Eliquis 5 mg tablet Take 1 tablet (5 mg total) by mouth 2 (two) times a day. 60 each 2 Active ALPRAZolam (XANAX) 1 mg tabletIndicatio ns:Generalized anxiety disorder Take 1 tablet (1 mg total) by mouth 2 (two) times a day if needed for anxiety. Max Daily Amount: 2 mg 60 tablet 2 Active methocarbamoL (ROBAXIN) 500 mg tablet Take 1 tablet (500 mg total) by mouth 2 (two) times a day for 10 days. 20 tablet 5 Active lisinopriL (PRINIVIL,ZESTR IL) 10 mg tablet Take 1 tablet (10 mg total) by mouth 1 (one) time each day. 30 each 5 Active carvediloL (COREG) 6.25 mg tablet Take 1 tablet (6.25 mg total) by mouth 2 (two) times a day with meals. 60 each 5 Active diphenhydrAMINE (BENADRYL) spray Apply topically every 4 (four) hours if needed for itching for up to 14 days. 60 mL 5 Active Active Problems Problem Noted Date Diagnosed Date Class 1 drug-induced obesity with serious comorbidity and body mass index (BMI) of 33.0 to 33.9 in adult 11/08/2021 Assessment & Plan (12/21/2021 2:38 PM EDT): weight has been stable. Assessment & Plan (11/08/2021 2:25 PM EDT): I will order blood work Degenerative disc disease, lumbar 11/08/2021 Assessment & Plan (11/08/2021 2:24 PM EDT): I will refer him to [facility] for pain management. He has records from his MRI in 2017. Vitamin D deficiency 11/08/2021 Assessment & Plan (12/21/2021 2:39 PM EDT): His Vit D is normal with an OTC daily supplement Opioid dependence (CMS/HCC V24, CMS/HCC V28) Assessment & Plan (11/08/2021 2:40 PM EDT): We discussed slow weaning him off his Oxycodone as he says he has been on it for years and then he mentions that when he drives to [place] he does not take them for 1- days at all. He seems to be interested in that Mixed hyperlipidemia 08/18/2020 Assessment & Plan (12/21/2021 2:39 PM EDT): lipids are well controlled with medications. Assessment & Plan (11/08/2021 2:24 PM EDT): I will order blood work Atrial fibrillation ([facility] V24, [facility] V28) 0 08/18/2020 Assessment & Plan (11/08/2021 2:20 PM EDT): He has been not seeing a dustless operator. I will refer her to one Anxiety disorder 03/02/2017 Assessment & Plan (11/08/2021 2:45 PM EDT): He has not been taking Citalopram. I will start him on it. He is very much interested in staying on the same dose of Xanax. I explained to him that we will slowly decrease his Xanax over time. Chronic pain 03/02/2017 Deep venous thrombosis ([facility] V24, [facility] V28 ) 03/02/2017 Essential hypertension 03/02/2017 Assessment & Plan (12/21/2021 2:39 PM EDT): The blood pressure is mildly elevated. I will monitor it. Lifestyle modifications reinforced- including weight reduction, DASH diet, sodium restriction, increased PE, and limited ETOH consumption. Assessment & Plan (11/08/2021 2:18 PM EDT): The blood pressure has been well controlled with medications. Lifestyle modifications reinforced- including weight reduction, DASH diet, sodium restriction, increased PE, and limited ETOH consumption. Seizure disorder ([facility] V24, [facility] V28) 02/19 Assessment & Plan (12/21/2021 2:44 PM EDT): He stopped his Dilantin as he says he has not had a seizure since he was a child and some neurologist in the past told him he could stop it several years ago. Assessment & Plan (11/08/2021 2:39 PM EDT): He is very unclear about his seizure disorder. He says he takes Dilantin because he had a seizure as a child and one as an adult years ago- he does not know when. I will refer him to a neurologist. . Stroke ([facility] V24, [facility] V28) Assessment & Plan (11/08/2021 2:24 PM EDT): He says he had a stroke but does not remember if it was last or this year. No records. Encounters Date Type Department Care Team Description 10/25/2024 6:11 PM EDT - 10/25/2024 7:23 PM EDT Emergency [facility] Emergency [address] [place] [address] Pain, dental (Primary Dx) Discharge Disposition: Home or Self Care from Last 3 Months Surgical History Surgery Date Site/Laterality Comments WOUND DEBRIDEMENT Medical History Medical History Date Comments Varicella Allergic rhinitis Stroke ([facility] V24, [facility] V28) Family History Medical History Relation Name Comments Dementia Mother Relation Name Status Comments Mother Social History Tobacco Use Types Packs/Day Years Used Date Smoking Tobacco: Never Smokeless Tobacco: Never Tobacco Cessation:Counseling Given: Not Answered Alcohol Use Standard Drinks/Week Comments Not Currently [...] Start Date Job End Date RETIRED - [employer]ING [employer] Not on file Not o n file Not on file Obstetrics History Last Filed Vital Signs Vital Sign Reading Time Taken Comments Blood Pressure 125/80 10/25/2024 7:22 PM EDT Pulse 81 10/25/2024 7:22 PM EDT Temperature 36.7 C (98.1 F) 10/25/2024 7:22 PM EDT Respiratory Rate 18 10/25/2024 7:22 PM EDT Oxygen Saturation 97% 10/25/2024 7:22 PM EDT Inhaled Oxygen Concentration - - Weight 105 kg (231 lb) 10/25/2024 5:45 PM EDT Height 175.3 cm (5' 9 ) 10/25/2024 5:45 PM EDT Body Mass Index 34.11 10/25/2024 5:45 PM EDT Plan of Treatment Health Maintenance Due Date Last Done Comments Colorectal Cancer Screening: Colonoscopy 1960 DTaP,Tdap,and Td Vaccines (1 - Tdap) 04/30/1979 Hepatitis A Vaccines (1 of 2 - Risk 2-dose series) 04/30/1979 Pneumococcal Vaccine: 50+ Years (1 of 1 - PCV) 2010 Zoster Vaccines (1 of 2) 2010 HIV Screening 03/21/2019 Hepatitis C Screening 03/21/2019 Medicare Annual Wellness Visit 03/21/2019 Social Influencers of Health Screening 03/21/2019 Depression Screening 02/20/2024 Hypertension/CHF/CAD Annual BMP Blood Test 10/13/2024 10/14/2023, 12/20/2021, 01/07/2018 COVID-19 Vaccine (3 - 2024-2 6 season) 2024 10/21/2020, 09/17/2020 Influenza Vaccine (#1) 2024 Cholesterol Screening (Lipid Panel) 12/20/2026 12/20/2021 RSV Immunization Adult Patients (1 - 1-dose 75+ series) 04/30/2035 HIB Vaccines Aged Out No longer eligi ble based on patient's age to complete this topic HPV Vaccines Aged Out No longer eligi ble based on patient's age to complete this topic Hepatitis B Vaccines Aged Out No long er eligible based on patient's age to complete this topic IPV Vaccines Aged Out No longer eligi ble based on patient's age to complete this topic MMR Vaccines Aged Out No longer eligi ble based on patient's age to complete this topic Meningococcal ACWY Vaccine Aged Out N o longer eligible based on patient's age to complete this topic Meningococcal B Vaccine Aged Out No l onger eligible based on patient's age to complete this topic RSV Immunization Patients Under 20 months Aged Out No longer eligible b ased on patient's age to complete this topic Varicella Vaccines Aged Out No longer eligible based on patient's age to complete this topic Procedures Procedure Name Priority Date/Time Associated Diagnosis Comments COMPREHENSIVE METABOLIC PANEL STAT 10/14/2023 5:16 AM EDT LIPID PANEL Routine 12/20/2021 10:46 AM EDT Mixed hyperlipidemia from Last 3 Months or Most Recently Relevant to Health Maintenance Results * (ABNORMAL) Comprehensive Metabolic Panel (CMP) (10/14/2023 5:16 AM EDT) Sodium 141 136 - 145 mmol/L LAB CHEMISTRY METHOD 10/14/2023 6:07 AM EDT [facility] Potassium 4.0 3.5 - 5.1 mmol/L LAB CHEMISTRY METHOD 10/14/2023 6:07 AM EDT [facility] Chloride 105 98 - 107 mmol/L LAB CHEMISTRY METHOD 10/14/2023 6:07 AM [facility] CO2 32(H) 20 - 31 mmol/L LAB CHEMISTRY METHOD 10/14/2023 6:07 AM T [facility] Anion Gap 4 3 - 11 LAB CHEMISTRY METHOD 10/14/2023 6:07 AM T [facility] Glucose 98 70 - 99 mg/dL LAB CHEMISTRY METHOD 10/14/2023 6:07 AM EDT [facility] BUN 8(L) 9 - 23 mg/dL LAB CHEMISTRY METHOD 10/14/2023 6:07 AM EDT [facility] Creatinine 0.69(L) 0.73 - 1.18 mg/dL LAB CHEMISTRY METHOD 10/14/2023 6:07 AM [facility] eGFR 104 >=60 mL/min/1. 73m2 LAB CHEMISTRY METHOD 10/14/2023 6:07 AM EDT [facility] Comment: Please note that this estimated GFR value is not recommended for use in individuals under the age of 18, individuals with unstable creatinine concentrations (including and acute renal failure), or individuals with extremes of body mass or diet (including amputees, paraplegics and obese individuals). Calculation based on the Chronic Kidney Disease Epidemiology Collaboration (CKD-EPI) equation refit without adjustment for race. BUN/Creatinine Ratio 11.6(L) 12.0 - 20.0 LAB CHEMISTRY METHOD 10/14/2023 6:07 AM EDT [facility] Calcium 9.1 8.3 - 10.6 mg/dL LAB CHEMISTRY METHOD 10/14/2023 6:07 AM EDT [facility] AST (SGOT) 15 13 - 40 unit/L LAB CHEMISTRY METHOD 10/14/2023 6:07 AM T [facility] ALT (SGPT) 18 7 - 40 unit/L LAB CHEMISTRY METHOD 10/14/2023 6:07 AM EDT [facility] Alkaline Phosphatase 84 56 - 119 unit/L LAB CHEMISTRY METHOD 10/14/2023 6:07 AM EDT [facility] Total Protein 7.0 5.7 - 8.2 g/dL LAB CHEMISTRY METHOD 10/14/2023 6:07 AM T [facility] Albumin 3.7 3.4 - 5.0 g/dL LAB CHEMISTRY METHOD 10/14/2023 6:07 AM EDT [facility] Total Bilirubin 0.5 0.2 - 1.1 mg/dL LAB CHEMISTRY METHOD 10/14/2023 6:07 AM T [facility] Blood Venous blood specimen / Unknown Venipuncture / Unknown 10/14/2023 5:16 AM EDT 10/14/2023 5:23 AM EDT us Trino Mosley DO LAB BLOOD ORDERABLES Final Resul t [facility] [address] [place] [address] * (ABNORMAL) Lipid panel (12/20/2021 10:46 AM EDT) Cholesterol 160 <200 mg/dL LAB CHEMISTRY METHOD 12/20/2021 1:31 PM EDT [facility] Triglycerides 113 <150 mg/dL LAB CHEMISTRY METHOD 12/20/2021 1:31 PM EDT [facility] HDL 46(L) >59 mg/dL LAB CHEMISTRY METHOD 12/20/2021 1:31 PM EDT [facility] LDL Calculated 91 0 - 99 mg/dL LAB CHEMISTRY METHOD 12/20/2021 1:31 PM EDT [facility] Comment: NATIONAL CHOLESTEROL EDUCATION PROGRAM (NCEP) ADULT TREATMENT PANEL III LIPID RISK CATEGORIES REVISED JUNE 2000 LDL CHOLESTEROL <100 OPTIMAL 100 - 129 NEAR OPTIMAL TO ABOVE OPTIMAL 130 - 159 BORDERLINE HIGH 160 - 189 HIGH >189 VERY HIGH TOTAL CHOLESTEROL <200 DESIRABLE 200 - 239 BORDERLINE HIGH >239 HIGH HDL CHOLESTEROL <40 LOW >59 DESIRABLE LDL TREATMENT GOALS BY CATEGORY RISK LDL GOAL WITH CHD OR CHD EQUIVALENTS <100 MULTIPLE (2+) RISK FACTORS <130 ZERO TO ONE RISK FACTOR <160 VLDL Cholesterol Delfino 22.6 <=30 mg/dL LAB CHEMISTRY METHOD 12/20/2021 1:31 PM EDT [facility] Blood Venous blood specimen / Unknown Venipuncture / Unknown 12/20/2021 10:46 AM EDT 12/20/2021 10:46 AM EDT us Angeli Greenwood MD LAB BLOOD ORDERABLES Final Resul t [facility] [address] [place] [address] from Last 3 Months or Most Recently Relevant to Health Maintenance Insurance MEDICARE Care Teams Radio Performer Relationship Specialty Start Date End Date Kelvin Vila NP [address] [place] [address] PCP - General 09/01/22
--- OUTSIDE RECORDS SUMMARY | 2024-11-25 21:53 | XMS_ITS | Clinical Summary ---
Author Organization [facility] Address [address] [place] [address] Care Team Providers Care Monument Stonecutter Name Role Phone Pcp, No Primary Care Provider Unavailabl e Allergies Active Allergy Reactions Criticality Noted Date Comments Ibuprofen Unknown/Patient and Family Unable to Define Medium 08/18/2020 Penicillins Unknown/Patient and Family Unable to Define Medium 08/18/2020 Ketorolac Tromethamine Unknown/Patient a nd Family Unable to Define Medium 08/18/2020 Medications * This document contains information received from the source organization and may not represent a complete record from that organization. ALPRAZolam (XANAX) 1 MG tablet Active apixaban (Eliquis) 5 MG tablet 07/20/2016 Active atorvastatin (LIPITOR) 40 MG tablet Active betamethasone valerate (VALISONE) 0.1 % cream 08/17/2020 Active carvedilol (COREG) 6.25 MG tablet Active lisinopril (PRINIVIL,ZeSTRI L) 10 MG tablet 07/23/2020 Act kasia oxyCODONE (ROXICODONE) 10 mg immediate release tablet 07/21/1995 Acti ve oxyCODONE (ROXICODONE) 10 mg immediate release tablet TAKE 1 TABLET BY MOUTH THREE TIMES DAILY NEEDED . DO NOT EXCEED 3 PER 24 HOURS 08/01/2020 Active phenytoin (Dilantin) 100 MG ER capsule Active Active Problems Problem Noted Date Diagnosed Date Recurrent deep vein thrombosis (DVT) 08/18/2020 Atrial fibrillation 08/18/2020 Mixed hyperlipidemia 08/18/2020 History of seizure 08/18/2020 Chronic back pain 08/18/2020 Opioid dependence 08/18/2020 Anxiety and depression 08/18/2020 Hypertension 08/18/2020 Encounters Date Type Department Care Team Description 08/31/2024 12:13 PM EDT - 08/31/2024 1:11 PM EDT Emergency [facility] Emergency Department [address] [place] [address] Chronic knee pain (Primary Dx) Discharge Disposition: Home or Self Care 08/31/2024 Travel from Last 3 Months Social History Tobacco Use Types Packs/Day Years Used Date Smoking Tobacco: Never Smokeless Tobacco: Never Alcohol Use Standard Drinks/Week Comments Not Currently 0 (1 standard drink = 0.6 oz pur e alcohol) Sex and Gender Information Value Date Recorded Sex Assigned at Male 08/08/2024 2:38 AM EDT Legal Sex Male 12:45 PM EDT Gender Identity Male 08/18/2020 2:05 PM EDT Sexual Orientation Heterosexual (straight) 08/08 2:38 AM EDT Last Filed Vital Signs Vital Sign Reading Time Taken Comments Blood Pressure 143/88 08/31/2024 12:08 PM EDT Pulse 78 08/31/2024 12:08 PM EDT Temperature 36.1 C (97 F) 08/31/2024 12:08 PM EDT Respiratory Rate 16 08/31/2024 12:08 PM EDT Oxygen Saturation 98% 08/31/2024 12:08 PM EDT Inhaled Oxygen Concentration - - Weight - - Height - - Body Mass Index - - Plan of Treatment Health Maintenance Due Date Last Done Comments Hepatitis C Virus Screening 1960 HIV Screening 1973 DTaP/Tdap/Td Vaccines (1 - Tdap) 04/30/1979 Colonoscopy 2005 Pneumococcal Vaccines 50+ (1 of 1 - PCV) 2010 Zoster (Shingles) Vaccine (1 of 2) 2010 RSV Vaccine 60 years and old er and Patients (1 - Risk 60-74 years 1-dose series) 2020 Influenza Vaccine 09/19/2024 COVID-19 Vaccine (1 - 2023-2 5 season) 2024 Hepatitis B Vaccines Aged Out No long er eligible based on patient's age to complete this topic Insurance MEDICARE PART A & B Care Teams Monument Stonecutter Relationship Specialty Start Date End Date Pcp, No PCP - General General Medicine 07/29/20
--- OUTSIDE RECORDS SUMMARY | 2024-11-25 21:53 | XMS_ITS | Clinical Summary ---
Author Organization [facility] Address [address] [place] [address] Phone Care Team Providers Care President Celebrity Acquistion Name Role Phone Pcp, Unknown Primary Care Provider Unavailabl e Allergies Active Allergy Reactions Criticality Noted Date Comments Ibuprofen 08/26/2023 Penicillins GI Upset 08/26/2023 Ketorolac Rash Low 08/26/2023 Social History Tobacco Use Types Packs/Day Years Used Date Smoking Tobacco: Never Assessed Education Answer Date Recorded Are you interested in more education? Not on mariano e 08/26/2023 Are you concerned about learning? Not on file 08/26/2023 No 08/26/2023 No 08/26/2023 Digital Access Answer Date Recorded No 08/26/2023 No 08/26/2023 Reliable internet access at home? Not on file 08/26/2023 Device with a working camera? Not on file Sex and Gender Information Value Date Recorded Sex Assigned at Not on file Legal Sex Male 2:49 PM EDT Gender Identity Not on file Sexual Orientation Not on file Last Filed Vital Signs Vital Sign Reading Time Taken Comments Blood Pressure 142/94 08/26/2023 2:56 PM EDT Pulse 77 08/26/2023 2:56 PM EDT Temperature 36.9 C (98.5 F) 08/26/2023 2:56 PM EDT Respiratory Rate 18 08/26/2023 2:56 PM EDT Oxygen Saturation 100% 08/26/2023 2:56 PM EDT Inhaled Oxygen Concentration - - Weight 95.3 kg (210 lb) 08/26/2023 2:56 PM EDT Height 175.3 cm (5' 9 ) 08/26/2023 2:56 PM EDT Body Mass Index 31.01 08/26/2023 2:56 PM EDT Plan of Treatment Health Maintenance Due Date Last Done Comments Adult Td,Tdap Booster 1960 LIPID PANEL 1960 DEPRESSION SCREENING 1972 SMOKING Hx and SMOKELESS TOB ACCO SCREENING 1973 HEPATITIS C SCREENING 1978 HIV ONE-TIME SCREENING (18-6 5 YEARS) 1978 SCREENING FOR DIABETES 04/30/1995 COLOGUARD 2005 COLONOSCOPY 2005 COLORECTAL CANCER SCREENING 2005 FIT TEST 2005 FOBT 2005 SIGMOIDOSCOPY 2005 VIRTUAL COLONOSCOPY 2005 PNEUMOCOCCAL VACCINES (50+ y ears) (1 of 1 - PCV) 2010 ZOSTER VACCINES (1 of 2) 2010 INFLUENZA VACCINE (#1) 2024 COVID-19 VACCINE (1 - 2024-2 6 season) 2024 RSV VACCINE (1 - 1-dose 75+ series) 04/30/2035 HEPATITIS A VACCINES Aged Out No long er eligible based on patient's age to complete this topic HIB VACCINES Aged Out No longer eligi ble based on patient's age to complete this topic MENINGOCOCCAL VACCINES (ACWY) Aged Out No longer eligible based on patient's age to complete this topic MENINGOCOCCAL VACCINES (B) Aged Out N o longer eligible based on patient's age to complete this topic Medical Devices Not on file Care Teams President Celebrity Acquistion Relationship Specialty Start Date End Date Pcp, Unknown PCP - General 08/26/23 Additional Source Comments The information contained in this document represents components of the legal health record. It is not the complete legal health record.[facility]
--- OUTSIDE RECORDS SUMMARY | 2024-11-25 21:53 | XMS_ITS | Clinical Summary ---
Author Organization [facility] Address [address] [address] Care Team Providers Care Resource Specialist Teacher Name Role Phone Unavailable Primary Care Provider Unavailabl e Allergies Active Allergy Reactions Criticality Noted Date Comments Duloxetine Hcl 03/15/2016 Other Reaction(s): Not available Cymbalta Ibuprofen 05/29/2016 Other Reaction(s): Not available ibuprofen Ketorolac Tromethamine 05/29/2016 Other Reaction(s): Not available Toradol Medications ALPRAZolam (Xanax) 1 MG tablet Take 1 by mouth twice a day. 03/11/2016 Active carvedilol (Coreg) 6.25 MG tablet Take 1 by mouth twice a day. 03/11/2016 Active oxyCODONE-acetam inophen (Percocet) 10-325 MG tablet 1 bid 03/11/2016 Ac tive lisinopril 10 MG tablet Take 1-2 by mouth daily. 03/11/2016 Active hydrOXYzine pamoate (Vistaril) 50 MG capsule Take one by mouth at night. 03/11/2016 Active phenytoin ER (Dilantin) 100 MG capsule 2 bid 03/15/2016 Active apixaban (Eliquis) 2.5 MG tablet 1 twice a day 07/25/2016 Active oxyCODONE-acetam inophen (Percocet) 10-325 MG tablet TAKE ONE TABLET BY MOUTH EVERY 6 HOURS NEEDED FOR PAIN 12 tablet 06/25/2024 5 Active Social History Tobacco Use Types Packs/Day Years Used Date Smoking Tobacco: Never Assessed Sex and Gender Information Value Date Recorded Sex Assigned at Not on file Legal Sex Male 2:11 PM EDT Gender Identity Not on file Sexual Orientation Not on file Last Filed Vital Signs Vital Sign Reading Time Taken Comments Blood Pressure 122/72 06/25/2024 4:11 PM EDT Pulse 65 06/25/2024 4:11 PM EDT Temperature 36.6 C (97.9 F) 06/25/2024 3:19 PM EDT Respiratory Rate 16 06/25/2024 4:11 PM EDT Oxygen Saturation 99% 06/25/2024 4:11 PM EDT Inhaled Oxygen Concentration - - Weight 98.8 kg (217 lb 13 oz) 06/25/2024 3:19 PM EDT Height 175.2 cm (5' 8.98 ) 06/25/2024 3:19 PM ED T Body Mass Index 32.19 06/25/2024 3:19 PM EDT Plan of Treatment Health Maintenance Due Date Last Done Comments CT Colonography 1960 Colonoscopy 1960 Colorectal Cancer Screening 1960 FIT-DNA 1960 FIT 1960 FOBT 1960 HIV Screening 1960 Sigmoidoscopy 1960 MMR Vaccines (1 of 1 - Stand javier series) 1961 DTaP/Tdap/Td Vaccines (1 - Tdap) 04/30/1967 Hepatitis C Screening 1978 Zoster Vaccines (1 of 2) 2010 COVID-19 Vaccine (1 - 2023-2 5 season) 2023 Influenza Vaccine (#1) 2024 HIB Vaccines Aged Out No longer eligi ble based on patient's age to complete this topic HPV Vaccines Aged Out No longer eligi ble based on patient's age to complete this topic Hepatitis A Vaccines Aged Out No long er eligible [...] patient's age to complete this topic Meningococcal Vaccine Aged Out No valorie luke eligible based on patient's age to complete this topic Pneumococcal Vaccine: Pediat rics (0 to 5 Years) and At-Risk Patients (6 to 64 Years) Aged Out No longer eligible b ased on patient's age to complete this topic Rotavirus Vaccines Aged Out No longer eligible based on patient's age to complete this topic
--- OUTSIDE RECORDS SUMMARY | 2024-11-25 21:53 | XMS_ITS ---
Author Name [facility] Organization Unknown History of Medication Use Medication Directions Dispensed Refills Start Date End Date Stat us oxyCODONE (ROXICODONE) immediate release tablet 10 mg 10 mg, oral, Once, On 07/20/24 at 1512, For 1 dose 07/20/2024 5 completed carvediloL (COREG) tablet 6.25 mg 6.25 mg, oral, Once, On 07/20/24 at 1555, For 1 dose 07/20/2024 active diphenhydrAMINE (BENADRYL) spray Apply topically every 4 (four) hours if needed for itching for up to 14 days. 07/20/2024 active doxycycline (VIBRAMYCIN) 100 mg capsule Take 1 capsule (100 mg total) by mouth 2 (two) times a day for 10 days. Take with at least 8 ounces (large glass) of water, do not lie down for 30 minutes after. Administer 2 hours before or after multivitamins, antacids, or other products containing polyvalent cations (i.e., calcium, iron, magnesiu 07/11/2024 5 active methocarbamoL (ROBAXIN) 500 mg tablet Take 1 tablet (500 mg total) by mouth 2 (two) times a day for 10 days. 07/11/2024 5 active ALPRAZolam (XANAX) 1 mg tablet Take 1 tablet (1 mg total) by mouth 2 (two) times a day if needed for anxiety. Max Daily Amount: 2 mg 01/09/2022 active lisinopriL (PRINIVIL,ZESTRIL) 10 mg tablet Take 1 tablet (10 mg total) by mouth 1 (one) time each day. 12/02/2021 5 aborted Eliquis 5 mg tablet Take 1 tablet (5 mg total) by mouth 2 (two) times a day. 12/02/2021 active carvediloL (COREG) 6.25 mg tablet Take 1 tablet (6.25 mg total) by mouth 2 (two) times a day with meals. 12/01/2021 active citalopram (CeleXA) 20 mg tablet Take 1 tablet (20 mg total) by mouth 1 (one) time each day. 11/08/2021 active betamethasone valerate (VALISONE) 0.1 % cream 08/17/2020 active ascorbic acid (VITAMIN C) 500 mg tablet Take 500 mg by mouth 1 (one) time each day. active atorvastatin (LIPITOR) 40 mg tablet Take 1 tablet by mouth 1 (one) time each day. active B complex-vitamin C tablet Take 1 tablet by mouth 1 (one) time each day. active cholecalciferol (VITAMIN D-3) 50 mcg (2,000 unit) capsule Take 1 capsule by mouth 1 (one) time each day. active Allergies Allergen Reaction Severity Comment Documented Date Source Statu s PENICILLINS ITCHING 07/20/2021 [facility] active CODEINE HIVES [facility] IBUPROFEN NAUSEA ONLY GI bleed [facility] KETOROLAC OTHER rash [facility] Problems Problem Status Onset Date Problem Type Date of Resolution Source Deep venous thrombosis ([facility] V24, [facility] V28) active 2017-03-02 ProblemAct [facility] Opioid dependence ([facility] V24, [facility] V28) active 2020-08-18 ProblemAct [facility] Chronic pain active 2017-03-02 ProblemAct [facility] Class 1 drug-induced obesity with serious comorbidity and body mass index (BMI) of 33.0 to 33.9 in adult active 2021-11-08 ProblemAct [facility] Degenerative disc disease, lumbar active 2021-11-08 ProblemAct [facility] Vitamin D deficiency active 2021-11-08 ProblemAct [facility] Seizure disorder ([facility] V24, [facility] V28) active 2017-03-02 ProblemAct [facility] Anxiety disorder active 2017-03-02 ProblemAct C T_THSFRAN Encounter for medication refill active EncounterDiagnosisAct C T_THSFRAN Atrial fibrillation ([facility] V24, [facility] V28) active 2020-08-18 ProblemAct [facility] Essential hypertension active 2017-03-02 ProblemAct [facility] Mixed hyperlipidemia active 2020-08-18 ProblemAct [facility] Stroke ([facility] V24, [facility] V28) active ProblemAct [facility] Encounters Encounter Type Encounter Reason Primary Diagnosis Location Date Emergency KNEE PAIN KNEE PAIN [facility] 11/23/2024 Emergency KNEE ISSUE WITH PAIN KNEE ISSUE WITH PAIN [facility] 08/31/2024 Emergency Pain in unspecified knee Pain in unspecified knee [facility] 08/31/2024 Emergency RT KNEE PAIN RT KNEE PAIN [facility] 08/21/2024 Emergency FALL, KNEE PAIN FALL, KNEE PAIN [facility] 08/21/2024 Emergency KNEE PAIN KNEE PAIN [facility] 08/10/2024 Emergency RIGHT KNEE OUT OF SOCKET RIGHT KNEE OUT OF SOCKET [facility] 08/08/2024 Emergency Pain in unspecified knee Pain in unspecified knee [facility] 08/08/2024 Emergency Other, mixed, or unspecified nondependent drug abuse, unspecified Other, mixed, or unspecified nondependent drug abuse, unspecified [facility] 08/07/2024 Emergency Other chronic pain Other chronic pain [facility] 08/07/2024 Emergency Headache; Encounter for is bear of repeat prescription [facility] 07/20/2024 Ambulatory [facility] 07/10/2024 Emergency DENTAL PAIN DENTAL PAIN [facility] 04/11/2023 Emergency Fracture of tooth (traumatic), initial encounter for closed fracture Fracture of tooth (traumatic), initial encounter for closed fracture [facility] 02/05/2023 Emergency DENTAL PAIN DENTAL PAIN [facility] 02/02/2023 Care Team Organization Name Specialty Phone Email Start Date End Da [facility] directory,Not Primary Care 08/31/2024 [facility] Not directory Primary Care 08/31/2024 [facility] directory,Not Primary Care 08/09/2024 [facility] Not directory Primary Care 08/09/2024 [facility] PCP 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 08/08/2024 09/29/2024 [facility] NO PCP Primary Care 08/08/2024 [facility] 08/07/2024 09/06/2024 [facility] 08/07/2024 [facility] 07/20/2024 [facility] [place] [place] Primary Care 07/20/2024 [facility] provided,No Primary Care 03/11/2023 11/22/2024 [facility] 02/07/2023 09/02/2024 [facility] 02/05/202301/19 [facility] provided No Primary Care 02/02/2023 11/22/2024 [facility] No provided Primary Care 02/02/2023 02/02/2023
--- NOTE | 2024-11-25 22:15 | PC.NURSE ---
Pt report to TW that he has not has his meds yet today. complains of right knee pain. Requesting narcotics. Eyes pin points and speech slurred. with him also noted to have pintpoint eyes and behaving strangely, pulled assist cord in bathroom and when tw attempted to assist she said she didnt need help and unable to focus on tw. provider confirmed 3 day oxycodone fill on 11/23, pt reports he ran out of medication, also filled oxycodone
--- NOTE | 2024-11-25 22:31 | PC.NURSE ---
PT refused predispose. stating he needs whatever he was prescribed at last ER. Provider explained to pt that fill was on 11/23 and he should still have enough. PT also had 28day fill on 11/13/24 84 pills. he states he left those medications in [place].
--- NOTE | 2024-11-25 22:32 | PC.NURSE ---
PT left without receiving discharge paperwork.
== END 2024-11-25 23:05 | disposition home or self-care (01) ==
PROVIDERS: Emergency Provider Emergency Medicine
DX: M17.11 Unilateral primary osteoarthritis, right knee (principal); Z79.891 Long term (current) use of opiate analgesic; Z91.81 History of falling; Z88.0 Allergy status to penicillin; Z88.6 Allergy status to analgesic agent
CPT/HCPCS: 73564; 82947; 99282; 99283

== ENCOUNTER → 2024-11-25 16:26 | Outpatient (BNV) | payer MEDICARE, SELFPAY | PROVIDERS: Visit Provider Radiology Diagnostic Radiology | DX: M17.11 Unilateral primary osteoarthritis, right knee (principal) | CPT/HCPCS: 73564 ==